=== PATIENT | female | born 1965 | race Caucasian/White ===

== ENCOUNTER → 2016-03-14 | Outpatient (CLI) | payer OTHER ==
--- NOTE | 2016-03-16 09:04 | MM ---
Reason for exam: screening (asymptomatic). Last mammogram was performed 1 year and 2 months ago. History: Family history of premenopausal breast cancer in mother at age 30 and breast cancer in maternal grandmother at age 60. Took hormonal contraceptives for 23 years 6 months beginning at age 18. Physical Findings: A clinical breast exam by your physician is recommended on an annual basis and results should be correlated with mammographic findings. MG 3D Screening Mammo W/Cad Bilateral CC and MLO view(s) were taken. Prior study comparison: January 05, 2015, left breast MG 3d work up w/cad LT. December 31, 2014, bilateral MG 3d screening mammo w/cad. Finding: There is an increased in size, 24 mm equal density (isodense), circumscribed round mass in the upper outer quadrant, middle position consistent with prior cyst from 01/05/15, 7 cm from the nipple. New finding since January 05, 2015 and December 31, 2014. ASSESSMENT: Incomplete: need additional imaging evaluation, BI-RAD 0 RECOMMENDATION: Ultrasound of the left breast. [facility] will attempt to contact patient to return for ultrasound.
== END | disposition home or self-care (01) ==
LOC: RADMAMWWP 10:29
PROVIDERS: ATTEND Surgery
DX: Z12.31 Encounter for screening mammogram for malignant neoplasm of breast (principal)
CPT/HCPCS: 77063; G0202

== ENCOUNTER → 2016-03-29 | Outpatient (CLI) | payer OTHER ==
--- NOTE | 2016-03-29 10:57 | USB ---
Reason for exam: additional evaluation requested from abnormal screening. History: Family history of premenopausal breast cancer in mother at age 30 and breast cancer in maternal grandmother at age 60. Took hormonal contraceptives for 23 years 6 months beginning at age 18. Physical Findings: Nurse did not find any significant physical abnormalities on exam. US Breast Workup LT Left breast ultrasound including all four quadrants, the retroareolar region and axilla demonstrates a 0.6 x 0.5 x 0.3cm oval, cystic lesion at 12 o'clock, a 0.3 x 0.2 x 0.2cm oval lesion too small to characterize at 12 o'clock and a 2.2 x 2.3 x 0.8cm oval, cystic lesion at 2 o'clock, increased in size from December 2014 but sill simple appearing. These results were verbally communicated with the patient and result sheet given to the patient on 03/29/16. ASSESSMENT: Benign, BI-RAD 2 RECOMMENDATION: Return to routine screening mammogram schedule for both breasts.
== END | disposition home or self-care (01) ==
LOC: RADUSWWP 09:47
PROVIDERS: ATTEND Surgery
DX: R92.8 Other abnormal and inconclusive findings on diagnostic imaging of breast (principal)

== ENCOUNTER → 2016-04-27 | Outpatient (CLI) | payer OTHER ==
--- NOTE | 2016-04-27 09:28 | CT ---
EXAMINATION TYPE: CT abdomen pelvis w con DATE OF EXAM: 04/27/2016 8:28 AM HISTORY: RLQ pain CT DLP: 1040.3mGycm Automated Exposure Control for Dose Reduction was Utilized. CONTRAST: CT scan of the abdomen and pelvis is performed with oral and with IV Contrast, patient injected with 100 mL of Omnipaque 300. COMPARISON: Prior CT abdomen and pelvis report February 03, 2009. FINDINGS: LUNG BASES: No significant abnormality is appreciated. LIVER/GB: There is a round or irregular area of low density posterior segment right hepatic dome robin uring 2.1 x 2.0 cm on axial image 18, Hounsfield units average 37 and thus solid lesion cannot be exc luded. There are 2 additional subcentimeter low dense lesions in the liver on axial image 20. Lesions are not described on prior report. PANCREAS: No significant abnormality is seen. SPLEEN: No significant abnormality is seen. ADRENALS: No significant abnormality is seen. KIDNEYS: No significant abnormality is seen. BOWEL: The oral contrast reaches level of rectum. There is no suspicious small or large bowel dilatat ion seen. Suspect normal contrast-filled appendix from the cecum. No surrounding inflammatory changes are present. UTERUS/ADNEXA: Uterus is anteverted in shape and within normal limits in size for premenopausal femal e. Both ovaries are present and not suspiciously enlarged near axial image 68. A few tiny nabothian c ysts are suspected in the cervix. LYMPH NODES: No greater than 1cm abdominal or pelvic lymph nodes are appreciated. OSSEOUS STRUCTURES: There is disc space narrowing with vacuum disc phenomenon L4-L5 level. There is f acet arthropathy lower lumbar spine. OTHER: No significant additional abnormality is seen. IMPRESSION: No significant acute finding is seen to account for patient's clinical symptoms. Nonspeci fic 2 cm right hepatic dome liver lesion, favor benign etiology such as focal fatty proliferation, co nsider multiphasic contrast-enhanced liver MRI to further evaluate and characterize if desired.
== END | disposition home or self-care (01) ==
LOC: RADCTMAIN 08:03
PROVIDERS: ATTEND Internal Medicine
DX: K76.9 Liver disease, unspecified (principal)
CPT/HCPCS: 74177; Q9967

== ENCOUNTER → 2016-05-14 | Outpatient (CLI) | payer OTHER ==
--- NOTE | 2016-05-14 12:53 | MR ---
EXAMINATION TYPE: MR liver wo/w con DATE OF EXAM: 05/14/2016 12:37 PM COMPARISON: CT scan of the abdomen and pelvis dated 04/27/2016. HISTORY: Malignant neoplasm of liver CONTRAST: Standard multiplanar, multisequence MRI departmental protocol utilizing 17 mL intravenous MultiHance gadolinium contrast. FINDINGS: There are 2 hepatic lesions. There is a 2.6 cm lesion in the posterior segment of the right lobe of the liver and a 1 cm lesion in the dome of the liver. Both of these lesions enhance centripe tally. The small lesion in the dome of the liver becomes isointense on delayed images. The larger les ion nearly completely fills in. In phase and out of phase imaging shows no significant fatty infiltration of the liver. The spleen and gallbladder are normal. The adrenal glands are unremarkable. Both kidneys demonstrate function and appear morphologically nor mal. IMPRESSION: FINDINGS MOST CONSISTENT WITH 2 SMALL HEMANGIOMAS WITHIN THE LIVER.
== END | disposition home or self-care (01) ==
LOC: RADMRIMAIN 11:34
PROVIDERS: ATTEND Internal Medicine
DX: C22.9 Malignant neoplasm of liver, not specified as primary or secondary (principal)
CPT/HCPCS: 74183; A9577

== ENCOUNTER → 2016-06-22 | Outpatient (CLI) | payer OTHER ==
--- NOTE | 2016-06-22 14:17 | XR ---
Lumbar spine HISTORY: Low back pain 5 views of the lumbosacral spine Correlation to prior exam 24 Jun 2010 Lumbar vertebral bodies show preserved height and alignment, there is no evident spondylolysis. Multi level spondylosis is present. Loss of disc height present at the intervertebral levels. IMPRESSION: Degenerative disc disease.
== END | disposition home or self-care (01) ==
LOC: RADXRMAIN 09:11
PROVIDERS: ATTEND Internal Medicine
DX: M51.36 Other intervertebral disc degeneration, lumbar region (principal)
CPT/HCPCS: 72110

== ENCOUNTER 2016-07-01 12:25 | Emergency (ER) | payer OTHER ==
[2016-07-01 13:07] VITALS: RESP 20; TEMP 98.4
--- NOTE | 2016-07-01 15:32 | ED ---
URI HPI - General Chief Complaint: Upper Respiratory Infection Stated Complaint: Congestion Time Seen by Provider: 07/01/16 15:19 Source: patient, RN notes reviewed Mode of arrival: ambulatory Limitations: no limitations - History of Present Illness Initial Comments: 51-year-old female presents emergency Department chief complaint cough congestion over the last 56 days. Patient states that she's also had some right -sided rib pain with this. She states it hurts when she twists or when she takes deep inspiration or coughs. She states she has a history of pleurisy. Patient states she has no shortness of breath at this time. Patient denies any left-sided or central/chest pain. Denies any palpitations no prior cardiac issues. Patient states that she saw her doctor yesterday and placed on azithromycin for upper respiratory infection. She states that she wanted x-ray though was not performed. Patient denies any nausea, vomiting, diaphoretic episodes, family history of heart disease. - Related Data Home Medications Medication Instructions Recorded Confirmed Cetirizine HCl [Zyrtec] 10 mg PO HS 11/04/14 07/01/16 Diclofenac Sodium [Voltaren] 75 mg PO BID 11/04/14 07/01/16 Sertraline [Zoloft] 200 mg PO HS 11/04/14 07/01/16 Cholecalciferol [Vitamin D3] 2,000 unit PO HS 01/01/15 07/01/16 Multivitamins, Thera [Multivitamin] 1 tab PO HS 01/01/15 07/01/16 Albuterol Nebulized [Ventolin 2.5 mg INHALATION RT-Q4H PRN 07/01/16 07/01/16 Nebulized] Magnesium Gluconate [Magonate] 500 mg PO HS 07/01/16 07/01/16 Metoclopramide [Reglan] 5 mg PO BID PRN 07/01/16 07/01/16 Mometasone/Formoterol [Dulera 100 2 puff INHALATION RT-BID 07/01/16 07/01/16 Mcg/5 Mcg Inhaler] Thyroid,Pork [Milton Thyroid] 120 mg PO BID 07/01/16 07/01/16 Vitamin A 8,000 unit PO HS 07/01/16 07/01/16 Vitamin K2 Otc 1 cap PO HS 07/01/16 07/01/16 Previous Rx's Medication Instructions Recorded methylPREDNISolone [Medrol Dose 4 mg PO DIRECTED #1 pack 07/01/16 Pack] traMADol HCl [Ultram] 50 mg PO Q6H PRN #20 tab 07/01/16 Allergies Allergy/AdvReac Type Severity Reaction Status Date / Time sulfamethoxazole Allergy Swelling Verified 07/01/16 15:49 [From Bactrim] of tongue and throat trimethoprim [From Bactrim] Allergy Swelling Verified 07/01/16 15:49 of tongue and throat migraine medication Allergy SWELLING Uncoded 01/01/15 11:40 OF TONGUE AND THROAT Review of Systems ROS Statement: Those systems with pertinent positive or pertinent negative responses have been documented in the HPI. ROS Other: All systems not noted in ROS Statement are negative. Past Medical History Past Medical History: Asthma, Osteoarthritis (OA) Additional Past Medical History / Comment(s): migraines, History of Any Multi-Drug Resistant Organisms: None Reported Past Surgical History: Section, Orthopedic Surgery Additional Past Surgical History / Comment(s): luis bunionectomy Past Anesthesia/Blood Transfusion Reactions: Motion Sickness Past Psychological History: Depression Smoking Status: Former smoker Past Alcohol Use History: None Reported Past Drug Use History: None Reported - Past Family History Father Family Medical History: Cancer Mother Family Medical History: Cancer, Deep Vein Thrombosis (DVT) General Exam Limitations: no limitations General appearance: alert, in no apparent distress Head exam: Present: atraumatic, normocephalic, normal inspection Eye exam: Present: normal appearance, PERRL, EOMI. Absent: scleral icterus, conjunctival injection, periorbital swelling ENT exam: Present: normal exam, normal oropharynx, mucous membranes moist, TM's normal bilaterally, normal external ear exam Neck exam: Present: normal inspection, full ROM. Absent: tenderness, meningismus, lymphadenopathy Respiratory exam: Present: normal lung sounds bilaterally, chest wall tenderness (Right lateral to anterior chest wall tenderness along the sternal). Absent: respiratory distress, wheezes, rales, rhonchi, stridor Cardiovascular Exam: Present: regular rate, normal rhythm, normal heart sounds. Absent: systolic murmur, diastolic murmur, rubs, gallop, clicks GI/Abdominal exam: Present: soft, normal bowel sounds. Absent: distended, tenderness, guarding, rebound, rigid Back exam: Absent: CVA tenderness (R), CVA tenderness (L) Course Vital Signs 07/01/16 13:04 Temperature 98.4 F Pulse Rate 74 Respiratory 20 Rate Blood Pressure 123/64 O2 Sat by Pulse 99 Oximetry Medical Decision Making - Medical Decision Making 51-year-old female presented emergency department for chest wall pain. Patient has acute costochondritis. Patient's EKG with normals. Patient has been sick and has reproducible pain. Patient will be discharged at this time return parameters were discussed. 07/01/16 16:04 EKG performed at 13:50 normal sinus rhythm with a rate of 72 OR interval 142, QS duration 76 QT/QTC 408/446 Disposition Clinical Impression: Costochondritis, Upper respiratory infection Disposition: HOME SELF-CARE Condition: Stable Instructions: Costochondritis (ED) Additional Instructions: Please return to the Emergency Department if symptoms worsen or any other concerns. Prescriptions: methylPREDNISolone [Medrol Dose Pack] 4 mg PO DIRECTED #1 pack traMADol HCl [Ultram] 50 mg PO Q6H PRN #20 tab PRN Reason: Pain Referrals: Terence Correa MD [Primary Care Provider] - 1-2 days Time of Disposition: 16:04
--- NOTE | 2016-07-01 16:02 | XR ---
EXAMINATION TYPE: XR chest 2V DATE OF EXAM: 07/01/2016 3:39 PM COMPARISON: 10/02/2015 HISTORY: 51-year-old female with cough and pain TECHNIQUE: Frontal and lateral views FINDINGS: The heart is normal size. Aorta and pulmonary vasculature within normal limits. Mild peribronchial cu ffing is noted centrally. Some strandy atelectasis in the lower lungs. Normal variant azygos fissure. No consolidation or pleural effusion. IMPRESSION: Some central peribronchial cuffing could represent bronchitis or chronic asthma. No focal infiltrate seen.
[2016-07-01 16:48] VITALS: BP 109/58; PULSE 69
== END 2016-07-01 16:48 | disposition home or self-care (01) ==
LOC: EC 12:25
DX: J06.9 Acute upper respiratory infection, unspecified (principal); M94.0 Chondrocostal junction syndrome [Tietze]; J45.909 Unspecified asthma, uncomplicated; M19.90 Unspecified osteoarthritis, unspecified site; F32.9 Major depressive disorder, single episode, unspecified; Z87.891 Personal history of nicotine dependence; Z79.1 Long term (current) use of non-steroidal anti-inflammatories (NSAID); Z79.51 Long term (current) use of inhaled steroids; Z79.899 Other long term (current) drug therapy; Z88.1 Allergy status to other antibiotic agents; Z88.8 Allergy status to other drugs, medicaments and biological substances
CPT/HCPCS: 71020; 93005; 99283

== ENCOUNTER → 2016-08-05 | Outpatient (CLI) | payer OTHER | END | disposition home or self-care (01) | LOC: LABPAT 12:31 | PROVIDERS: ATTEND Orthopaedic Surgery | DX: Z01.812 Encounter for preprocedural laboratory examination (principal) | CPT/HCPCS: 87070 ==

== ENCOUNTER → 2016-08-26 | Outpatient (CLI) | payer OTHER ==
[2016-08-26 10:31] LABS: Basophils % (A) 1 %; CH 28.8; CHCM 34.3; Eosinophils # (A) 0.1 k/uL (0-0.7); Eosinophils % (A) 1 %; HCT 38.7 % (34.0-46.0); HDW 2.51; Luc # (Auto) 0.08; Luc % (Auto) 2; Lymphocytes # (A) 1.5 k/uL (1.0-4.8); Lymphocytes % (A) 32 %; MCH 30.5 pg (25.0-35.0); MCHC 36.1 g/dL (31.0-37.0); MCV 84.4 fL (80.0-100.0); Mean Platelet Volume 6.7; Monocytes # (A) 0.2 k/uL (0-1.0); Monocytes % (A) 5 %; Neutrophils # (A) 2.8 k/uL (1.3-7.7); Neutrophils % (A) 59 %; RBC 4.58 m/uL (3.80-5.40); RDW 12.8 % (11.5-15.5); WBC 4.7 k/uL (3.8-10.6); WBC (Perox) 4.74
[2016-08-26 10:40] LABS: Partial Thromboplastin Time 26.7 sec (22.0-30.0); Prothrombin Time 9.8 sec (9.0-12.0)
[2016-08-26 10:43] LABS: Appearance,Urine Cloudy (Clear); Bacteria,Urine Occasional /hpf; Bilirubin,Urine Negative (Negative); Glucose,Urine (UA) Negative (Negative); Ketones,Urine Negative (Negative); Leukocyte Esterase,Urine Negative (Negative); Mucus,Urine Rare /hpf; Nitrite,Urine Negative (Negative); Particle Count 5143; Protein,Urine Negative (Negative); RBC,Urine 1 /hpf (0-5); Squamous Epithelial Cell,Urine 1 /hpf (0-4); UA Billing (MACRO vs. MICRO) MICRO; Urobilinogen,Urine <2.0 mg/dL (<2.0); WBC,Urine 1 /hpf (0-5)
[2016-08-26 10:52] LABS: Anion Gap 10 mmol/L; Blood Urea Nitrogen 14 mg/dL (7-17); Calcium 9.3 mg/dL (8.4-10.2); Carbon Dioxide 21 mmol/L (22-30); Chloride 109 mmol/L (98-107); Glucose 103 mg/dL (74-99); Non-African American GFR(MDRD) >60 (>60 ml/min/1.73 sqM); Potassium 4.5 mmol/L (3.5-5.1); Sodium 140 mmol/L (137-145)
== END | disposition home or self-care (01) ==
LOC: LABPAT 10:12
PROVIDERS: ATTEND Internal Medicine
DX: Z01.818 Encounter for other preprocedural examination (principal); Z96.659 Presence of unspecified artificial knee joint
CPT/HCPCS: 80048; 81001; 85025; 85610; 85730

== ENCOUNTER 2016-09-05 07:58 | Inpatient (IN) | payer OTHER ==
[2016-08-30 10:15] VITALS: BMI 32.1
--- NOTE | 2016-09-04 14:58 | HP ---
Miley Pennington is a 51 year old patient seen with symptomatic right knee osteoarthritis. After treatment options were discussed, she elected to proceed with right total knee arthroplasty. Consent was obtained. Medical clearance was provided by Dr. Correa. Past medical history is asthma, osteoarthritis, depression. Past surgical history is right knee arthroscopy. Daily medications: 1. Diclofenac. 2. Spironolactone. 3. Zoloft. 4. Zyrtec. ALLERGIES: BACTRIM. Social history: The patient denies tobacco use. Physical evaluation right knee: Range of motion: negative 2/3 to 120 degrees, tenderness along the medial joint line. Crepitans along the medial and patellofemoral compartments with range of motion. Pain with patellofemoral compression, ligaments stable. Hip rotation without pain. Distal neurovascular exam intact. Radiographs of the right knee revealed severe medial compartment osteoarthritis. IMPRESSION: Right knee osteoarthritis. PLAN: Right total knee arthroplasty. RONY
[~2016-09-05 07:58] MED LIST: ACETAMINOPHEN TAB 500 MG TAB PO ONE; DEXAMETHASONE SOD PHOSPHATE 10 MG/ML 1 ML VIAL IV ONE; HYDROmorphone 1 MG/ML 1 ML SYRINGE IVP PRN; LIDOCAINE 1% 20 ML VIAL (10MG/ML) FOR IV START INTRADERMA PRN; MELOXICAM 7.5 MG TAB PO ONE; MIDAZOLAM 2 MG/2 ML VIAL IV PRN; ONDANSETRON 4 MG/2 ML VIAL IVP ONE; SCOPOLAMINE 1.5MG/72HR PATCH TRANSDERM ONE; TRANEXAMIC ACID 1,000 MG in SODIUM CHLORIDE 0.9% 100 ML IVPB ONE; ceFAZolin 2 GM in SODIUM CHLORIDE 0.9% 100 ML IVPB ONE; fentaNYL (PF) 50 MCG/ML 2 ML AMP IVP PRN
[2016-09-05] MEDS: LACTATED RINGERS 1,000 ML IV SCH ×4 (09:16→23:16)
[2016-09-05 09:29] LABS: Glucose,Whole Blood 99 mg/dL (75-99)
[2016-09-05] MEDS ORDERED: MIDAZOLAM 2 MG/2 ML VIAL IVP ONE (09:34)
[2016-09-05] MEDS ORDERED: ROPIVACAINE 1,100 MG, SODIUM CHLORIDE 0.9% 330 ML MISCELLANE PRN ×2 (10:20)
[2016-09-05] MEDS ORDERED: fentaNYL (PF) 50 MCG/ML 2 ML AMP ONE (10:22)
[2016-09-05] MEDS ORDERED: MIDAZOLAM 2 MG/2 ML VIAL ONE (10:22)
[2016-09-05] MEDS ORDERED: PROPOFOL 10 MG/ML 20 ML VIAL IV ONE (10:22)
[2016-09-05] MEDS ORDERED: SODIUM CHLORIDE 0.9% 100 ML BAG ONE (10:22)
[2016-09-05] MEDS ORDERED: PHENYLEPHRINE-0.9% NACL SYG 1 MG/10 ML SYRINGE ONE (10:22)
[2016-09-05] MEDS ORDERED: TRANEXAMIC ACID 1,000 MG/10 ML VIAL ONE (10:22)
[2016-09-05] MEDS ORDERED: ONDANSETRON 4 MG/2 ML VIAL ONE (10:22)
[2016-09-05] MEDS ORDERED: LACTATED RINGERS 1,000 ML IV ONE (10:50)
[2016-09-05] MEDS: ROPIVACAINE 246.25 MG, EPINEPHrine 0.5 MG, KETOROLAC 30 MG, cloNIDine HCL/PF 80 MCG, WA... MISCELLANE ONE ×10 (11:02→11:44)
[2016-09-05] MEDS ORDERED: ONDANSETRON 4 MG/2 ML VIAL IVP PRN (12:37)
[2016-09-05] MEDS ORDERED: NALOXONE 0.4 MG/ML 1 ML VIAL IV PRN (12:37)
[2016-09-05] MEDS ORDERED: hydrOXYzine PAMOATE 25 MG CAP PO PRN (12:37)
[2016-09-05] MEDS ORDERED: HYDROcodone/APAP 7.5-325MG 1 EACH TAB PO PRN (12:37)
[2016-09-05] MEDS ORDERED: HYDROmorphone 1 MG/ML 1 ML SYRINGE IVP PRN ×3 (12:37)
--- NOTE | 2016-09-05 12:37 | P.OP ---
Date of Procedure: 09/05/16 Preoperative Diagnosis: Right knee osteoarthritis Postoperative Diagnosis: Right knee osteoarthritis Procedure(s) Performed: Right total knee arthroplasty Implants: 1. Larissa persona size 7 narrow cruciate retaining cemented femoral component 2. Larissa persona size D cemented tibial component 3. Larissa persona 10 mm medial congruent polyethylene tibial insert 4. Larissa persona 35 mm all polyethylene cemented patella Anesthesia: regional (Adductor canal block), local, spinal Surgeon: Tyrese Quinn Senior Professional Services Consultant #1: Ji Hoyos Estimated Blood Loss (ml): 50 Pathology: none sent Condition: stable Disposition: PACU Indications for Procedure: 51-year-old patient seen with progressive symptomatic right knee osteoarthritis. After treatment options were discussed, she elected to proceed with total knee arthroplasty. Operative Findings: See description of procedure Description of Procedure: Patient was taken to the operative suite after having undergone an adductor canal block by department of anesthesia. Patient underwent a spinal anesthetic by the department of anesthesia. Patient was given preoperative IV intake antibiotics and TXA. A well-padded tourniquet was placed about the right lower extremity. The lower extremity was then prepped and draped in the normal sterile orthopedic fashion. A standard anterior incision was made sharply through skin. Dissection was taken down through the subcutaneous soft tissues down to the extensor mechanism. A medial arthrotomy was performed, patella was everted and knee was flexed. There was advanced osteoarthritis noted. A proximal tibial cutting guide was positioned. Proximal tibial cut was made. A distal intramedullary femoral cutting guide was positioned, distal femoral cut made. We placed the appropriate sizing guide and selected the appropriate size. A distal 4-in-1 femoral cutting block was positioned, distal femoral cuts were made. We now placed a trial femoral component into position, along with an appropriate size tibial tray and insert. We now took the knee through range of motion and had full extension good flexion and good overall soft tissue balance noted. The patella was everted and a flush cut made with patellar quad tendon. We templated the patella, appropriate drill holes were made. An appropriate trial patella was positioned, knee was taken through full range of motion with the patella tracking very nicely. The trial patella was removed. Drill holes were made through the femoral component. All trial components were removed after marking off the appropriate rotation of the tibia. Retractors were now positioned along the proximal tibia. An appropriate keel punch was made with the appropriate size tibial guide. The tourniquet was insufflated to 350. At this point appropriate size implants were chosen and opened. The joint was irrigated copiously with pulse lavage mechanical irrigation. The deep soft tissues were infiltrated local analgesic. We mixed antibiotic methylmethacrylate. Once the methyl methacrylate was ready, the tibial component was cemented into place removing any excess methylmethacrylate. The femoral component was cemented into place removing the removing any excess methylmethacrylate. We then inserted the appropriate size polyethylene tibial insert. We made sure that it was locked into position. We took the knee into full extension, and then back in a flexion making sure we had removed any excess methylmethacrylate. The patellar component was then cemented down and secured with clamp. Excess methylmethacrylate removed. We kept the knee in full extension, patellar clamp in position until methylmethacrylate had hardened. Once it had hardened the patellar clamp was removed. The knee was taken through full range of motion. The patella tracked nicely. There was good soft tissue balancing. The tourniquet was now released. Additional hemostasis was achieved via electrocautery. A second gram of TXA was given. The extensor mechanism was repaired with Vicryl. We checked the repair with range of motion and it was stable. The subcutaneous soft tissues were repaired with Vicryl in layers. The skin was approximated with pernio/Dermabond. Sterile dressings were applied followed by loose web roll and Jem bandage. The patient was transferred to a bed, and taken to recovery in stable and satisfactory condition. David TRINIDAD assisted with the procedure.
--- NOTE | 2016-09-05 13:16 | XR ---
EXAMINATION TYPE: XR knee limited RT , 2 VIEWS DATE OF EXAM ORDERED: 09/05/2016 HISTORY: Evaluation for Postop abnormality and alignment. COMPARISON: Preoperative study dated 12/29/2009. FINDINGS: The right knee arthroplasty has been performed. Prosthetic elements appear in good positio n. There is subcutaneous and intra-articular air. IMPRESSION: STATUS POST RIGHT KNEE ARTHROPLASTY.
[2016-09-05] MEDS: traMADol 50 MG TAB PO SCH ×3 (14:01→21:07)
[2016-09-05 16:11] VITALS: RESP 16
[2016-09-05] MEDS: ceFAZolin 2 GM in SODIUM CHLORIDE 0.9% 100 ML IVPB SCH ×2 (16:56→23:16)
[2016-09-05] MEDS ORDERED: ALBUTEROL NEBULIZED 2.5 MG/3 ML INHALATION PRN (19:05)
--- NOTE | 2016-09-05 19:17 | P.ONQ ---
Anesthesiology Proc Note - PNB - Peripheral Nerve Block Performed Right Adductor Canal Infusion Indication: Acute Post-Operative Pain, Dx/Pain Location (Right Knee), Requested by physician Specifically requested for management of pain by DrMagan: Tyrese Quinn Sedation Type: Sedate with meaningful contact maintained Preparation: Sterile Dressing Position: Supine Catheter: Indwelling Needle Types: Other (see comment) (Pajunk ) Needle Size: 100mm (4") Needle Gauge: 18 Technique: Ultrasound Injectate: 0.5% Ropivacaine (see comment for volume) (30cc) Blood Aspirated: No Pain Paresthesia on Injection Noted: No Resistance on Injection: Normal Events: Uneventful and Well Tolerated
[2016-09-05] MEDS: SENNOSIDES-DOCUSATE SODIUM 1 EACH TAB PO SCH (20:19)
[2016-09-05] MEDS: ENOXAPARIN 30 MG/0.3 ML SYRINGE SQ SCH (20:20)
[2016-09-05] MEDS: SERTRALINE 100 MG TAB PO SCH (20:20)
[2016-09-06] MEDS: HYDROcodone/APAP 7.5-325MG 1 EACH TAB PO PRN ×4 (01:06→17:20)
--- NOTE | 2016-09-06 06:42 | CONS ---
DATE OF SERVICE: 09/05/2016 This is a 51-year-old white female who has long-standing history of advanced degenerative arthritis of the right knee and patient was being followed by Dr. Quinn and patient was recommended to have right total knee arthroplasty and accordingly the patient had a right total knee arthroplasty today that is 2016 and I have been asked to see the patient for postoperative medical management. Her medical history reveals that she has history of gastroesophageal reflux disease and degenerative arthritis of multiple joints especially the knee and also has a history of mental depression. She denies any diabetes mellitus or COPD or coronary artery disease and has no history of diabetes mellitus. Her current medications include Reglan, Voltaren, Nexium, Zoloft. She has no known drug allergies. She does not smoke and she does not drink alcohol. Family history reveals that patient's mother has history of diabetes and hypertensive cardiovascular disease, degenerative arthritis of multiple joints and also has a history of lymphoma several years ago and the patient's father has history of coronary artery disease, chronic lymphocytic leukemia, COPD and arthritis. REVIEW OF THE SYSTEMS: The patient denies any headache. Appetite has been good. Bowels are regular. She has no chest pain. She has no cough. She has no abdominal pain. She has no polyuria or dysuria. She has no neurological symptoms. Physical examination reveals a 51-year-old white female, well nourished and well developed. She is alert and oriented. She is in no acute distress. There is no jaundice. There is no generalized lymphadenopathy. There are no petechiae or bruises. Pulse 80 per minute regular. Blood pressure 120/72. EXAMINATION OF THE ENT: Negative. Neck is supple. There is no jugular venous distention. There is no goiter. There is no carotid bruit. Heart is in sinus rhythm. Lungs are clear to auscultation and percussion. ABDOMEN: Soft and nontender. There is no mass palpable. Examination of the lower extremities reveals that she is status post right total knee arthroplasty. Neurologic examination does not reveal localizing signs. IMPRESSION: 1. Advanced osteoarthritis right knee, status post right total knee arthroplasty. 2. History of gastroesophageal reflux disease. 3. History of mental depression. RECOMMENDATIONS: Patient will be placed back on her previous medications. Her vital signs are stable. There is no acute cardiorespiratory problems. Patient will be started on DVT prophylaxis as per orthopedic protocol. Thank you for asking me to see this patient in consultation. We will follow the patient with you for her medical problems. RONY
[2016-09-06] MEDS: ENOXAPARIN 30 MG/0.3 ML SYRINGE SQ SCH ×2 (07:14→19:22)
[2016-09-06] MEDS: FAMOTIDINE 20 MG TAB PO SCH (07:14)
[2016-09-06] MEDS: LACTATED RINGERS 1,000 ML IV SCH ×4 (07:15→23:48)
[2016-09-06 08:05] LABS: Basophils % (A) 0 %; CH 29.1; CHCM 33.2; Eosinophils % (A) 0 %; HCT 33.2 % (34.0-46.0); HGB 11.1 gm/dL (11.4-16.0); Luc # (Auto) 0.07; Luc % (Auto) 1; Lymphocytes # (A) 1.6 k/uL (1.0-4.8); Lymphocytes % (A) 17 %; MCH 29.3 pg (25.0-35.0); MCHC 33.4 g/dL (31.0-37.0); MCV 87.8 fL (80.0-100.0); Mean Platelet Volume 7.1; Monocytes # (A) 0.5 k/uL (0-1.0); Monocytes % (A) 5 %; Neutrophils # (A) 7.3 k/uL (1.3-7.7); Neutrophils % (A) 77 %; RBC 3.78 m/uL (3.80-5.40); RDW 13.3 % (11.5-15.5); WBC 9.5 k/uL (3.8-10.6); WBC (Perox) 9.55
[2016-09-06] MEDS ORDERED: MELOXICAM 7.5 MG TAB PO SCH (09:00)
--- NOTE | 2016-09-06 10:09 | P.PN ---
Progress Note - Text . Postoperative day # 1 status post total knee arthroplasty, under spinal anesthesia, and adductor canal catheter placed for postoperative analgesia, currently at ropivacaine 0.2% 8 mL per hour and continuous infusion, catheter site local. There is no erythema, and there is no tenderness, visual analogue scale is 3/10, patient using oral pain medication for breakthrough pain. Assessment and plan= Acute postoperative pain, adductor canal catheter for pain control, pain is well controlled we'll continue the same management.
[2016-09-06] MEDS: traMADol 50 MG TAB PO SCH ×4 (11:17→22:14)
--- NOTE | 2016-09-06 12:17 | P.PN ---
Subjective Principal diagnosis: Status post right total knee arthroplasty Patient seen today resting in her hospital bed, she appears comfortable. Her pain is controlled this time. There was a little bit lightheadedness when ambulating. Urinary catheters been discontinued. She denies any fevers or chills, shortness of breath or chest pain. Objective - Vital Signs Vital signs: Vital Signs Temp 97.6 F 09/06/16 07:00 Pulse 77 09/06/16 08:00 Resp 16 09/06/16 08:00 BP 111/69 09/06/16 07:00 Pulse Ox 92 L 09/06/16 07:00 Intake & Output 09/05/16 09/06/16 09/06/16 18:59 06:59 18:59 Intake Total 2580 500 240 Output Total 1000 2200 700 Balance 1580 -1700 -460 Weight 86.183 kg 86.183 kg Intake: IV 2100 500 Lactated Ringers 1,000 ml 400 @ 100 mls/hr IV .Q10H MARY Rx#:[id number] ceFAZolin 2 gm In Sodium 100 Chloride 0.9% 100 ml @ 100 mls/hr IVPB Q8HR MARY Rx#:[id number] Oral 480 240 Output: Urine 950 2200 700 Uretheral ([place]) 2200 700 Estimated Blood Loss 50 Other: Voiding Method Indwelling Catheter Indwelling Catheter Toilet - Exam Right lower extremity: Incision is clean, dry and intact. Calf is soft, no tenderness with palpation. Plantar flexion, dorsiflexion, EHL, FHL are intact. Sensory exam to light touch throughout that extremities intact, dorsal pedis pulses 2+. - Labs CBC & Chem 7: 09/06/16 07:27 Labs: Abnormal Lab Results - Last 24 Hours (Table) 09/06/16 Range/Units 07:27 RBC 3.78 L (3.80-5.40) m/uL Hgb 11.1 L (11.4-16.0) gm/dL Hct 33.2 L (34.0-46.0) % Assessment and Plan Plan: Assessment: 1. Postop day 1 status post right total knee arthroplasty Plan: 1. Pain control, continue same current medications 2. GI and DVT prophylaxis, continue current medication 3. Ice and elevate/daily dressing changes 4. Continue therapy and CPM 5. Medical recommendations 6. Discharge planning: Patient will be discharged home today, likely tomorrow Time with Patient: Less than 30
--- NOTE | 2016-09-06 12:19 | P.DS ---
Providers Date of admission: 09/05/16 07:58 Expected date of discharge: 09/07/16 Attending physician: Tyrese Quinn Consults: 09/05/16 12:37 Consult Physician Routine Consulting Provider: Terence Correa Reason/Comments: Medical management Do you want consulting provider notified?: Yes Primary care physician: Terence Correa [facility] Course: Date of admission: 09/05/2016 Date of discharge: 09/07/2016 Admission diagnosis: Status post right total knee arthroplasty Discharge diagnosis: Same Attending physician: Dr. Quinn Surgical procedures: Right total knee arthroplasty Brief history: Patient is a 51-year-old female with a history of progressive primary right knee osteoarthritis. At this point patient has failed conservative treatment measures and has opted to proceed with a elective right total knee arthroplasty. Hospital course: Details of patient's surgery can be found in operative report. Patient tolerated the procedure well and was subsequently transported to orthopedic floor. Patient's orthopeidc and medical care was provided daily. Patient had daily laboratory tests performed for evaluation of overall blood counts. Patient had daily physical therapy to include strengthening range of motion as well as education with walker ambulation. Patient had daily CPM usage as part of their physical therapy program. Patient was treated with Lovenox for their postoperative DVT prophylaxis during their inpatient stay. Patient was noted to have a relatively uneventful postoperative course. Patient reported satisfactory pain control with oral pain medications by postoperative day 0. Patient showed satisfactory progress with physical therapy. Patient moved steadily through the program and had no difficulty meeting the goals by postoperative day 2. Given patient's otherwise satisfactory course and having met physical therapy goals, plan is to discharge patient home on postoperative day 2. Discharge condition/disposition: Patient will be discharged home in stable condition. Discharge medications: Instructions are given on resumption of patient's normal daily medications per primary care recommendation, in addition patient will be prescribed [place] 7.5 mg/325 mg, tramadol 50 mg, Pepcid 20 mg, Colace 100 mg, aspirin 325 mg. Discharge instructions: 1. Wound care and infection precautions, [keep incision dry and covered while showering], no lotions, creams, moisturizers. No soaking, tubs, pools, hottubs. Do not scrub over the incision. 2. Weight-bear [as tolerated] with walker / cane until follow-up. 3. Ice and elevate when necessary. Do not exceed 20 minutes per hour with ice pack. 4. Utilize compression sleeve until seen at first follow up appointment. 5. Visiting nursing care. 6. Home physical therapy [including home CPM]. 7. Pain meds and anticoagulants per prescription. 8. Pain medication has potential to cause constipation. Increase oral fluid and fiber intake. Contact primary care provider if you have not had a bowel movement within 48 hours after discharge 9. No anti-inflammatory medication until discussed at first post operative visit, this including Motrin, Aleve, Mobic, Diclofenac. 10. Follow up in office at 2 weeks postop with David Hoyos PA-C 11. Follow up with your primary care doctor 7-10 days after discharge. 12. Contact [facility] with any questions, . Procedures: Right total knee arthroplasty Patient Condition at Discharge: Good Plan - Discharge Summary New Discharge Prescriptions: New Aspirin 325 mg PO BID #60 tab Docusate [Colace] 100 mg PO DAILY #30 capsule Famotidine [Pepcid] 20 mg PO DAILY #30 tablet HYDROcodone/APAP 7.5-325MG [[place] 7.5] 1 - 2 each PO Q6HR PRN #60 tab PRN Reason: Pain traMADol HCl [Ultram] 50 mg PO Q6H PRN #40 tab PRN Reason: Pain No Action Diclofenac Sodium [Voltaren] 75 mg PO BID Cetirizine HCl [Zyrtec] 10 mg PO HS Sertraline [Zoloft] 200 mg PO HS Cholecalciferol [Vitamin D3] 2,000 unit PO HS Multivitamins, Thera [Multivitamin] 1 tab PO HS Vitamin K2 Otc 1 cap PO HS Vitamin A 8,000 unit PO HS Albuterol Nebulized [Ventolin Nebulized] 2.5 mg INHALATION RT-Q4H PRN PRN Reason: Shortness Of Breath Metoclopramide [Reglan] 5 mg PO BID PRN PRN Reason: Nausea Magnesium Gluconate [Magonate] 500 mg PO HS Thyroid,Pork [[place] Thyroid] 60 mg PO BID Discharge Medication List Cetirizine HCl [Zyrtec] 10 mg PO HS 11/04/14 [History] Diclofenac Sodium [Voltaren] 75 mg PO BID 11/04/14 [History] Sertraline [Zoloft] 200 mg PO HS 11/04/14 [History] Cholecalciferol [Vitamin D3] 2,000 unit PO HS 01/01/15 [History] Multivitamins, Thera [Multivitamin] 1 tab PO HS 01/01/15 [History] Albuterol Nebulized [Ventolin Nebulized] 2.5 mg INHALATION RT-Q4H PRN 07/01/16 [ History] Magnesium Gluconate [Magonate] 500 mg PO HS 07/01/16 [History] Metoclopramide [Reglan] 5 mg PO BID PRN 07/01/16 [History] Vitamin A 8,000 unit PO HS 07/01/16 [History] Vitamin K2 Otc 1 cap PO HS 07/01/16 [History] Thyroid,Pork [[place] Thyroid] 60 mg PO BID 08/30/16 [History] Aspirin 325 mg PO BID #60 tab 09/07/16 [Rx] Docusate [Colace] 100 mg PO DAILY #30 capsule 09/07/16 [Rx] Famotidine [Pepcid] 20 mg PO DAILY #30 tablet 09/07/16 [Rx] HYDROcodone/APAP 7.5-325MG [[place] 7.5] 1 - 2 each PO Q6HR PRN #60 tab 09/07/16 [ Rx] traMADol HCl [Ultram] 50 mg PO Q6H PRN #40 tab 09/07/16 [Rx] Follow up Appointment(s)/Referral(s): Ji Hoyos PAC [PHYSICIAN WHEEL TRUER] - 2 Weeks Activity/Diet/Wound Care/Special Instructions: [facility]: [phone] Orthopedic Discharge Instructions: 1. Wound care and infection precautions, keep incision dry and covered while showering, no lotions, creams, moisturizers. No soaking, pools, hot tubs. Do not scrub over incision. 2. Weight-bear as tolerated with walker / cane until follow-up. 3. Ice and elevate when necessary. Do not exceed 20 minutes per hour with ice pack. 4. Utilize compression sleeve until seen at first follow up appointment. 5. Visiting nursing care. 6. Home physical therapy including home CPM. 7. Pain meds and anticoagulants per prescription. 8. Pain medication has potential to cause constipation. Increase oral fluid and fiber intake. Contact primary care provider if you have not had a bowel movement within 48 hours after discharge. 9. No anti-inflammatory medication until discussed at first post operative visit, this including Motrin, Aleve, Mobic, Diclofenac. 10. Follow up in office at 2 weeks postop with David Hoyos PA-C 11. Follow up with your primary care doctor 7-10 days after discharge. 12. Contact [facility] with any questions, . Discharge Disposition: HOME WITH HOME HEALTH SERVICES
[2016-09-06] MEDS ORDERED: METOCLOPRAMIDE 5 MG TAB PO PRN (12:50)
[2016-09-06] MEDS: THYROID, PORK 30 MG TAB PO SCH ×2 (13:45→19:15)
[2016-09-06] MEDS: SERTRALINE 100 MG TAB PO SCH (19:15)
[2016-09-06] MEDS: ETODOLAC 400 MG TAB PO SCH (19:16)
[2016-09-06] MEDS: SENNOSIDES-DOCUSATE SODIUM 1 EACH TAB PO SCH (19:19)
--- NOTE | 2016-09-06 19:32 | PN ---
DATE OF SERVICE: 09/06/16 This is a 51 -year-old white female who had a right total knee arthroplasty yesterday and the patient was seen by me for postoperative medical management. The patient has been doing fairly well. Vital signs were stable. She denied any chest pain or cough. Apparently she had a dizzy spell while she was getting physical therapy and she is feeling alright now and her vital signs are stable. Blood pressure is 132/72. Her hemoglobin is 11.1. Heart is in sinus rhythm. Lungs are clear. There is no acute cardiorespiratory problems. The patients blood pressure is being monitored and she will be placed back on her previous home medications. We will continue physical therapy and she could be discharged home when it is okay with Dr. Quinn, possibly tomorrow. RONY
[2016-09-06] MEDS ORDERED: LORATADINE 10 MG TAB PO SCH (21:00)
[2016-09-06] MEDS ORDERED: MULTIVITAMINS, THERA 1 EACH TAB PO SCH (21:00)
[2016-09-06] MEDS ORDERED: MAGNESIUM OXIDE 400 MG TAB PO SCH (21:00)
[2016-09-06] MEDS ORDERED: VITAMIN A 10,000 UNIT CAPSULE PO SCH (21:00)
[2016-09-06] MEDS ORDERED: CHOLECALCIFEROL 1,000 UNIT TAB PO SCH (21:00)
[2016-09-07] MEDS: HYDROcodone/APAP 7.5-325MG 1 EACH TAB PO PRN (05:19)
[2016-09-07 08:41] VITALS: BP 107/55; PULSE 76; TEMP 97.9
--- NOTE | 2016-09-07 09:08 | P.PN ---
Subjective Principal diagnosis: Status post right total knee arthroplasty Patient seen today resting in her hospital bed, she appears comfortable. Her pain is controlled this time. Lightheadedness has improved significantly today. She denies any fevers or chills, shortness of breath or chest pain. Objective - Vital Signs Vital signs: Vital Signs Temp 97.9 F 09/07/16 07:40 Pulse 76 09/07/16 07:40 Resp 16 09/07/16 07:40 BP 107/55 09/07/16 07:40 Pulse Ox 93 L 09/07/16 07:40 Intake & Output 09/06/16 09/07/16 09/07/16 18:59 06:59 18:59 Intake Total 720 220 Output Total 700 Balance 20 220 Weight 86.183 kg Intake: Oral 720 220 Output: Urine 700 Uretheral ([place]) 700 Other: Voiding Method Toilet Toilet # Voids 2 1 - Exam Right lower extremity: Incision is clean, dry and intact. Calf is soft, no tenderness with palpation. Plantar flexion, dorsiflexion, EHL, FHL are intact. Sensory exam to light touch throughout that extremities intact, dorsal pedis pulses 2+. - Labs CBC & Chem 7: 09/06/16 07:27 Assessment and Plan Plan: Assessment: 1. Postop day #2 status post right total knee arthroplasty Plan: 1. Pain control, continue same current medications 2. GI and DVT prophylaxis, discharged home on aspirin 325 mg twice a day 3. Ice and elevate/daily dressing changes 4. Continue therapy and CPM 5. Medical recommendations 6. Discharge planning: We'll discharge home today Time with Patient: Less than 30
--- NOTE | 2016-09-07 10:53 | P.PN ---
Progress Note - Text 0708 anesthesia POD 2. Patient is status post right TKR under spinal anesthesia with a right adductor canal catheter placed for postoperative pain relief. Patient is seen ambulating in the hallway with assistance. Ropivacaine 0.2% is running at 12 mL/h and the patient reports a VAS of 4. Catheter site is intact clean and dry. We'll continue with the same management.
[2016-09-07] MEDS: ENOXAPARIN 30 MG/0.3 ML SYRINGE SQ SCH (11:15)
[2016-09-07] MEDS: THYROID, PORK 30 MG TAB PO SCH (11:17)
[2016-09-07] MEDS: FAMOTIDINE 20 MG TAB PO SCH (11:17)
[2016-09-07] MEDS: ETODOLAC 400 MG TAB PO SCH (11:22)
[2016-09-07] MEDS: traMADol 50 MG TAB PO SCH ×2 (11:23→14:29)
--- NOTE | 2016-09-08 09:16 | PN ---
DATE OF SERVICE: 09/07/2016 This is a 51-year-old white female who had a right total knee arthroplasty by Dr. Quinn and patient was seen by me for postoperative medical management. Patient tolerated the surgery well and postoperatively she had no complications and her vital signs are stable. Her hemoglobin is stable and patient is going to be discharged by Dr. Quinn today and she denies any chest pain or shortness of breath and there is no acute cardiorespiratory problems. Detailed discharge instructions from medical standpoint was given and she was continued on her previous home medications. Will see her in my office for medical followup in about 2 weeks. She will also be followed by Dr. Quinn for continued postop care and will also get home health care for physical therapy. RONY
== END 2016-09-07 15:08 | disposition home health service (06) | DRG 470 ==
LOC: 2ORMAIN 07:58 → 3SUR 12:51
PROVIDERS: ADMIT Orthopaedic Surgery; ATTEND Orthopaedic Surgery
PROC: 0SRC0J9 Replacement of Right Knee Joint with Synthetic Substitute, Cemented, Open Approach (ICD-10-PCS; principal; 2016-09-05 10:10)
DX: M17.11 Unilateral primary osteoarthritis, right knee (principal); F32.9 Major depressive disorder, single episode, unspecified; J45.909 Unspecified asthma, uncomplicated; M23.8X1 Other internal derangements of right knee; R42 Dizziness and giddiness; G43.909 Migraine, unspecified, not intractable, without status migrainosus; E07.9 Disorder of thyroid, unspecified; G89.18 Other acute postprocedural pain; K21.9 Gastro-esophageal reflux disease without esophagitis; Z83.3 Family history of diabetes mellitus; Z82.49 Family history of ischemic heart disease and other diseases of the circulatory system; Z80.6 Family history of leukemia; Z82.5 Family history of asthma and other chronic lower respiratory diseases; Z82.61 Family history of arthritis; Z80.7 Family history of other malignant neoplasms of lymphoid, hematopoietic and related tissues; Z79.1 Long term (current) use of non-steroidal anti-inflammatories (NSAID); Z79.899 Other long term (current) drug therapy; Z88.2 Allergy status to sulfonamides; Z88.8 Allergy status to other drugs, medicaments and biological substances; Z87.442 Personal history of urinary calculi
CPT/HCPCS: 81025; 85025; 88300

== ENCOUNTER → 2017-03-07 | Outpatient (CLI) | payer OTHER ==
[2017-03-07 11:12] LABS: ALT 26 U/L (9-52); AST 17 U/L (14-36); Albumin 4.3 g/dL (3.5-5.0); Alkaline Phosphatase 76 U/L (38-126); Anion Gap 9 mmol/L; Blood Urea Nitrogen 14 mg/dL (7-17); Calcium 9.5 mg/dL (8.4-10.2); Carbon Dioxide 27 mmol/L (22-30); Chloride 104 mmol/L (98-107); Cholesterol 193 mg/dL (<200); Glucose 99 mg/dL (74-99); HDL Cholesterol 45 mg/dL (40-60); LDL Cholesterol,Calculated 121 mg/dL (0-99); Potassium 4.5 mmol/L (3.5-5.1); Sodium 140 mmol/L (137-145); Total Bilirubin 0.8 mg/dL (0.2-1.3); Triglycerides 133 mg/dL (<150)
[2017-03-07 11:16] LABS: HCT 38.7 % (34.0-46.0); HGB 12.8 gm/dL (11.4-16.0); MCH 28.2 pg (25.0-35.0); MCV 85.2 fL (80.0-100.0); Platelet Count 345 k/uL (150-450); RBC 4.54 m/uL (3.80-5.40); RDW 13.5 % (11.5-15.5); WBC 5.1 k/uL (3.8-10.6)
[2017-03-07 11:28] LABS: T4, Free (Free Thyroxine) 0.95 ng/dL (0.78-2.19)
--- NOTE | 2017-03-07 12:23 | XR ---
EXAMINATION TYPE: XR hand complete RT DATE OF EXAM: 03/07/2017 COMPARISON: NONE HISTORY: Pain TECHNIQUE: Three views are submitted. FINDINGS: The osseous structures are intact. There is arthropathy of the MCP joints. And there is no acute frac ture or dislocation. IMPRESSION: 1. Mild arthropathy
--- NOTE | 2017-03-07 12:24 | XR ---
EXAMINATION TYPE: XR wrist complete RT DATE OF EXAM: 03/07/2017 COMPARISON: NONE HISTORY: Pain TECHNIQUE: Four views submitted. FINDINGS: The osseous structures are intact. The joint spaces are preserved and there is no acute fracture or dislocation. IMPRESSION: 1. No definite acute fracture or dislocation if symptoms persist, follow-up study in 7 to 10 days wo uld be suggested
== END | disposition home or self-care (01) ==
LOC: LABWHC1 10:17
PROVIDERS: ATTEND Internal Medicine
DX: M12.841 Other specific arthropathies, not elsewhere classified, right hand (principal); G56.01 Carpal tunnel syndrome, right upper limb; Z00.00 Encounter for general adult medical examination without abnormal findings; K21.0 Gastro-esophageal reflux disease with esophagitis; E03.9 Hypothyroidism, unspecified; E78.2 Mixed hyperlipidemia
CPT/HCPCS: 36415; 80053; 80061; 82272; 84439; 84443; 85027

== ENCOUNTER → 2017-04-13 | Outpatient (CLI) | payer OTHER ==
--- NOTE | 2017-04-14 06:53 | MM ---
Reason for exam: additional evaluation requested from prior study. Last mammogram was performed 1 year and 1 month ago. History: Family history of premenopausal breast cancer in mother at age 30 and breast cancer in maternal grandmother at age 60. Took hormonal contraceptives for 23 years 6 months beginning at age 18. Physical Findings: Nurse Summary: 1cm nodule in the left breast at 1 o'clock (nurse theresa). MG 3D Diag Mammo W/Cad MARCELO Bilateral CC and MLO view(s) were taken. Prior study comparison: March 14, 2016, bilateral MG 3d screening mammo w/cad. January 05, 2015, left breast MG 3d work up w/cad LT. The breast tissue is heterogeneously dense. This may lower the sensitivity of mammography. Finding: There is a 30 mm circumscribed round mass in the middle posterior position of the left breast. New finding and slightly increase in size since March 14, 2016 and January 05, 2015. These results were verbally communicated with the patient and result sheet given to the patient on 04/13/17. ASSESSMENT: Incomplete: need additional imaging evaluation, BI-RAD 0 RECOMMENDATION: Ultrasound of the left breast.
--- NOTE | 2017-04-14 06:55 | USB ---
Reason for exam: additional evaluation requested from abnormal screening. History: Family history of premenopausal breast cancer in mother at age 30 and breast cancer in maternal grandmother at age 60. Took hormonal contraceptives for 23 years 6 months beginning at age 18. US Breast LT Left breast ultrasound includes all four quadrants, the retroareolar region and axilla. Finding demonstrates a 0.3 x 0.2 x 0.3cm lesion too small to characterize at 12 o'clock, a 0.5 x 0.3 x 0.5cm lesion too small to characterize at 12 o'clock, a 0.6 x 0.7 x 0.5cm cystic lesion at 1 o'clock and a 2.6 x 1.8 x 0.7cm cystic lesion at 2 o'clock. These results were verbally communicated with the patient and result sheet given to the patient on 04/13/17. ASSESSMENT: Benign, BI-RAD 2 RECOMMENDATION: Routine screening mammogram of both breasts in 1 year.
== END | disposition home or self-care (01) ==
LOC: RADMAMWWP 14:33
PROVIDERS: ATTEND Surgery
DX: N60.19 Diffuse cystic mastopathy of unspecified breast (principal); Z80.3 Family history of malignant neoplasm of breast
CPT/HCPCS: 77066; 76641; G0279

== ENCOUNTER → 2018-05-07 | Outpatient (CLI) | payer OTHER ==
--- NOTE | 2018-05-07 12:10 | MM ---
Reason for exam: screening (asymptomatic). Last mammogram was performed 1 year and 1 month ago. History: Family history of premenopausal breast cancer in mother at age 30 and breast cancer in maternal grandmother at age 60. Took hormonal contraceptives for 23 years 6 months beginning at age 18. Physical Findings: A clinical breast exam by your physician is recommended on an annual basis and results should be correlated with mammographic findings. MG 3D Screening Mammo W/Cad Bilateral CC and MLO view(s) were taken. Prior study comparison: April 13, 2017, bilateral MG 3d diag mammo w/cad MARCELO. March 14, 2016, bilateral MG 3d screening mammo w/cad. The breast tissue is heterogeneously dense. This may lower the sensitivity of mammography. There is a stable benign appearing round circumscribed right retroareolar mass back to 2015. No suspicious abnormality. No significant changes when compared with prior studies. ASSESSMENT: Benign, BI-RAD 2 RECOMMENDATION: Routine screening mammogram of both breasts in 1 year.
== END | disposition home or self-care (01) ==
LOC: RADMAMWWP 06:53
PROVIDERS: ATTEND Internal Medicine
DX: Z12.31 Encounter for screening mammogram for malignant neoplasm of breast (principal)
CPT/HCPCS: 77063; 77067

== ENCOUNTER → 2018-11-22 | Outpatient (CLI) | payer OTHER ==
[2018-11-22 13:47] LABS: Prothrombin Time 10.4 sec (9.0-12.0)
[2018-11-22 13:49] LABS: Basophils % (A) 1 %; Eosinophils # (A) 0.1 k/uL (0-0.7); Eosinophils % (A) 2 %; HCT 39.5 % (34.0-46.0); HGB 12.7 gm/dL (11.4-16.0); Lymphocytes # (A) 1.4 k/uL (1.0-4.8); Lymphocytes % (A) 28 %; MCH 28.9 pg (25.0-35.0); MCHC 32.3 g/dL (31.0-37.0); MCV 89.4 fL (80.0-100.0); Mean Platelet Volume 6.5; Monocytes # (A) 0.2 k/uL (0-1.0); Monocytes % (A) 4 %; Neutrophils # (A) 3.3 k/uL (1.3-7.7); Neutrophils % (A) 65 %; Platelet Count 304 k/uL (150-450); RBC 4.42 m/uL (3.80-5.40); WBC 5.1 k/uL (3.8-10.6)
[2018-11-22 14:02] LABS: Potassium 4.2 mmol/L (3.5-5.1)
== END | disposition home or self-care (01) ==
LOC: LABPAT 12:53
PROVIDERS: ATTEND Orthopaedic Surgery
DX: Z01.818 Encounter for other preprocedural examination (principal); Z01.812 Encounter for preprocedural laboratory examination; M17.12 Unilateral primary osteoarthritis, left knee; Z79.01 Long term (current) use of anticoagulants
CPT/HCPCS: 36415; 80051; 85025; 85610; 87070; 93005

== ENCOUNTER → 2018-12-18 | Outpatient (CLI) | payer OTHER ==
--- NOTE | 2018-12-19 08:57 | XR ---
2 view abdomen HISTORY: N.20, right-sided pain, history of stones 2 views of the abdomen, comparison to prior CT scan dated April 27, 2006 Lung bases are clear. There is no evident bowel obstruction or pneumoperitoneum. There is a calcifica tion present in the right paraspinal location at L4 level measuring approximately 7 mm. Degenerative disc changes visualized at the L4-5 level. Slight spinal curvature. Probable phlebolith in the right hemipelvis. IMPRESSION: Right ureteral calculus.
== END | disposition home or self-care (01) ==
LOC: LABWHC1 15:46
PROVIDERS: ATTEND Family Medicine
DX: N20.1 Calculus of ureter (principal)
CPT/HCPCS: 74018

== ENCOUNTER → 2018-12-28 | Outpatient (CLI) | payer OTHER ==
[2018-12-28 10:21] LABS: Basophils % (A) 1 %; Eosinophils # (A) 0.1 k/uL (0-0.7); Eosinophils % (A) 2 %; HGB 13.6 gm/dL (11.4-16.0); Lymphocytes # (A) 1.5 k/uL (1.0-4.8); Lymphocytes % (A) 27 %; MCH 29.6 pg (25.0-35.0); MCHC 33.2 g/dL (31.0-37.0); MCV 89.2 fL (80.0-100.0); Mean Platelet Volume 6.6; Monocytes # (A) 0.3 k/uL (0-1.0); Monocytes % (A) 5 %; Neutrophils # (A) 3.6 k/uL (1.3-7.7); Neutrophils % (A) 64 %; Platelet Count 316 k/uL (150-450); RDW 12.9 % (11.5-15.5); WBC 5.6 k/uL (3.8-10.6)
[2018-12-28 10:32] LABS: African American GFR (CKD) >90 (>60 ml/min/1.73 sqM); Anion Gap 9 mmol/L; Blood Urea Nitrogen 17 mg/dL (7-17); Calcium 9.5 mg/dL (8.4-10.2); Carbon Dioxide 26 mmol/L (22-30); Chloride 105 mmol/L (98-107); Glucose 108 mg/dL (74-99); Potassium 4.2 mmol/L (3.5-5.1); Sodium 140 mmol/L (137-145)
[2018-12-28 10:34] LABS: INR 0.9 (<1.2); Prothrombin Time 9.9 sec (9.0-12.0)
== END ==
LOC: LABPAT 09:59
PROVIDERS: ATTEND Urology
DX: Z01.818 Encounter for other preprocedural examination (principal); N20.1 Calculus of ureter
CPT/HCPCS: 36415; 80048; 85025; 85610; 93005

== ENCOUNTER 2018-12-31 09:48 | Day surgery (SDC) | payer OTHER ==
[2018-12-03 10:01] VITALS: BMI 31.7
--- NOTE | 2018-12-30 10:35 | HP ---
HISTORY AND PHYSICAL REASON FOR ADMISSION: Surgery scheduled for 12/31/2018 Miley Pennington is a 53-year-old patient seen with symptomatic left knee osteoarthritis. We discussed options for treatment. She elected to proceed with left total knee arthroplasty. Consent regarding procedure obtained. PAST MEDICAL HISTORY: Depression, asthma. PAST SURGICAL HISTORY: Right knee arthroscopy. MEDICATIONS: Zoloft, Singulair, Zyrtec. ALLERGIES: BACTRIM, MIGRAINE MEDICATIONS. SOCIAL HISTORY: She denies current tobacco use. PHYSICAL EXAMINATION: Evaluation of the left knee: Range of motion 0-115. Mild effusion. Tenderness medial joint line. Crepitus medial and patellofemoral compartments. Ligaments stable. Hip rotation without pain. Distal neurovascular exam intact. RADIOGRAPHS: Left knee radiographs reveal severe medial moderate patellofemoral compartment osteoarthritis. IMPRESSION: 1. Left knee osteoarthritis. 2. Asthma. PLAN: Left total knee arthroplasty. Surgery is 12/31/2018. MMODL / IJN: [id number] /
[~2018-12-31 09:48] MED LIST changes: +HYDROmorphone 0.5 MG/0.5 ML SYRINGE IVP PRN; -HYDROmorphone 1 MG/ML 1 ML SYRINGE IVP PRN; +ROPIVACAINE 246.25 MG, EPINEPHrine 0.5 MG, KETOROLAC 30 MG, cloNIDine HCL/PF 80 MCG, WA... MISCELLANE ONE; -SCOPOLAMINE 1.5MG/72HR PATCH TRANSDERM ONE; -ceFAZolin 2 GM in SODIUM CHLORIDE 0.9% 100 ML IVPB ONE; +fentaNYL (PF) 50 MCG/ML 2 ML AMP IV PRN; -fentaNYL (PF) 50 MCG/ML 2 ML AMP IVP PRN
[2018-12-31] MEDS ORDERED: fentaNYL (PF) 50 MCG/ML 2 ML AMP IV ONE (11:04)
[2018-12-31] MEDS: LACTATED RINGERS 1,000 ML IV SCH ×2 (11:25→15:18)
[2018-12-31] MEDS ORDERED: MIDAZOLAM 2 MG/2 ML VIAL ONE (12:37)
[2018-12-31] MEDS ORDERED: SODIUM CHLORIDE 0.9% 100 ML BAG ONE (12:37)
[2018-12-31] MEDS ORDERED: TRANEXAMIC ACID 1,000 MG/10 ML VIAL ONE (12:37)
[2018-12-31] MEDS ORDERED: LIDOCAINE 1% INJ 10MG/ML (20 ML MDV) ONE (12:37)
[2018-12-31] MEDS ORDERED: PROPOFOL 10 MG/ML 20 ML VIAL IV ONE (12:37)
[2018-12-31] MEDS ORDERED: LACTATED RINGERS 1,000 ML IV ONE (13:00)
[2018-12-31] MEDS ORDERED: ceFAZolin 3,000 MG in SODIUM CHLORIDE 0.9% IRRIGATIO 3,000 ML IRRIGATION ONE ×4 (13:11)
[2018-12-31] MEDS ORDERED: HYDROmorphone 0.5 MG/0.5 ML SYRINGE IVP PRN ×2 (14:29)
[2018-12-31] MEDS ORDERED: HYDROcodone/APAP 5-325MG 1 EACH TAB PO PRN (14:29)
[2018-12-31] MEDS ORDERED: NALOXONE 0.4 MG/ML 1 ML VIAL IV PRN (14:29)
[2018-12-31] MEDS ORDERED: ONDANSETRON 4 MG/2 ML VIAL IVP PRN (14:29)
--- NOTE | 2018-12-31 14:29 | P.OP ---
Date of Procedure: 12/31/18 Preoperative Diagnosis: Left knee osteoarthritis Postoperative Diagnosis: Left knee osteoarthritis Procedure(s) Performed: Left total knee arthroplasty Implants: 1. Depuy attune size 5 narrow left cruciate retaining cemented femur 2. Depuy attune size 4 fixed bearing cemented tibial baseplate 3. Depuy attune size 5 fixed bearing cruciate retaining 10 mm tibial insert 4. Depuy attune size 5 fixed bearing 10 mm all polyethylene cemented patella Anesthesia: regional (Adductor canal catheter), local, spinal Surgeon: Tyrese Quinn Digital Marketing Apprentice #1: Ji Hoyos Estimated Blood Loss (ml): 20 Pathology: other (Bone) Condition: stable Disposition: PACU Indications for Procedure: 53-year-old patient seen with symptomatic left knee osteoarthritis. After treatment options were discussed, she elected to proceed with total knee arthroplasty. Operative Findings: See description of procedure Description of Procedure: Patient was taken to the operative suite after having an adductor canal catheter placed by the department of anesthesia for postoperative pain management. Patient underwent a spinal anesthetic by the department of anesthesia. Patient was given preoperative IV intake antibiotics and TXA. A well-padded tourniquet was placed about the left lower extremity. The lower extremity was then prepped and draped in the normal sterile orthopedic fashion. The extremity was elevated, a tourniquet was insufflated to 300. A standard anterior incision was made sharply through skin. Dissection was taken down through the subcutaneous soft tissues down to the extensor mechanism. A medial arthrotomy was performed, patella was everted and knee was flexed. There was advanced osteoarthritis noted. I introduced my distal intramedullary femoral drill. I then introduced the distal femoral cutting jig. David TRINIDAD secured the cutting jig with 2 pins. I held retractors in position while David TRINIDAD performed the distal femoral resection through the guide area we now removed her distal femoral cutting guide. We now placed our 4-in-1 femoral cutting block and positioned and it was secured with 2 pins by David TRINIDAD while I held the block in position. The distal femoral finishing was now completed. A proximal tibial cutting guide was positioned. I held the guide in the appropriate position with both hands well David TRINIDAD inserted stabilizing pins into the guide. Proximal tibial cut was made. We now placed a trial femoral component into position, along with an appropriate size tibial tray and insert. We now took the knee through range of motion and had full extension good flexion and good overall soft tissue balance noted. The patella was everted and stabilized with 2 towel clips held by David TRINIDAD while I performed a flush with patellar quad tendon utilizing a fresh sawblade. We templated the patella, appropriate drill holes were made. An appropriate trial patella was positioned, knee was taken through full range of motion with the patella tracking very nicely. The trial patella was removed. Drill holes were made through the femoral component. All trial components were removed after marking off the appropriate rotation of the tibia. Retractors were now positioned along the proximal tibia. An appropriate keel punch was made with the appropriate size tibial guide by myself on David TRINIDAD assisted by holding retractors. At this point appropriate size implants were chosen and opened. The joint was irrigated copiously with pulse lavage mechanical irrigation. The posterior capsule was infiltrated with local analgesic. The wound was irrigated with pulse lavage mechanical irrigation. We mixed antibiotic methylmethacrylate. We placed the knee into flexion. We placed multiple retractors assisted by David TRINIDAD to expose the proximal tibia. Once the methyl methacrylate was ready, the tibial component was cemented into place removing any excess methylmethacrylate form by both myself and David TRINIDAD. The femoral component was cemented into place removing the removing any excess methylmethacrylate performed by both myself and David TRINIDAD. We then inserted the appropriate size polyethylene tibial insert. We made sure that it was locked into position. We took the knee into full extension, and then back in a flexion making sure we had removed any excess methylmethacrylate. The patellar component was then cemented down and secured with clamp. Excess methylmethacrylate removed. We kept the knee in full extension, patellar clamp in position until methylmethacrylate had hardened. Once it had hardened the patellar clamp was removed. The knee was taken through full range of motion. The patella tracked nicely. There was good soft tissue balancing. The tourniquet was now released. Additional hemostasis was achieved via electrocautery. A second gram of TXA was given. The wound again was irrigated with pulse lavage mechanical irrigation. The superficial soft tissues were infiltrated local analgesic. The extensor mechanism was repaired with Vicryl. We checked the repair with range of motion and it was stable. The subcutaneous soft tissues were repaired with Vicryl in layers. The skin was approximated with pernio/Dermabond. Sterile dressings were applied followed by loose web roll and Jem bandage. The patient was transferred to a bed, and taken to recovery in stable and satisfactory condition. David TRINIDAD assisted with this complex procedure.
[2018-12-31] MEDS ORDERED: ROPIVACAINE 0.2%-NS ON-Q PUMP 1,090 MG, EMPTY PAIN BALL 1 EACH MISCELLANE PRN (14:45)
--- NOTE | 2018-12-31 15:05 | XR ---
EXAMINATION TYPE: XR knee limited LT DATE OF EXAM: 12/31/2018 CLINICAL HISTORY: Left knee pain and arthritis status post total knee replacement. TECHNIQUE: Portable AP and crosstable lateral views of the left knee are obtained immediately postop eratively. COMPARISON: None FINDINGS: Metallic hardware from total left knee arthroplasty is seen and appears satisfactory in al ignment and position. There is evidence of recent surgery with diffuse subcutaneous gas and soft tis jose a swelling noted. IMPRESSION: METALLIC HARDWARE FROM TOTAL LEFT KNEE ARTHROPLASTY IS SATISFACTORY IN ALIGNMENT.
[2018-12-31] MEDS ORDERED: METOCLOPRAMIDE 5 MG TAB PO PRN (15:46)
[2018-12-31] MEDS: HYDROcodone/APAP 5-325MG 1 EACH TAB PO PRN ×2 (16:29→21:59)
[2018-12-31] MEDS: HYDROmorphone 1 MG/ML 1 ML SYRINGE IVP PRN (18:22)
--- NOTE | 2018-12-31 19:44 | P.ANPRN ---
Procedure Note - Anesthesia - Nerve Block Performed Left Adductor Canal Infusion Time Out Performed: Yes Date of Procedure: 12/31/18 Procedure Start Time: 11:04 Procedure Stop Time: :17 Location of Patient: PreOp Indication: Acute Post-Operative Pain, Requested by Surgeon Sedation Type: Sedate with meaningful contact maintained Preparation: Sterile Prep, Sterile Dressing Position: Supine Catheter: Indwelling Needle Types: [place]ajunk Needle Gauge: 21 Ultrasound used to visualize needle placement: Yes Ultrasound used to observe medication spread: Yes Blood Aspirated: No Pain Paresthesia on Injection Noted: No Resistance on Injection: Normal Image Stored and Saved: Yes Events: Uneventful and Well Tolerated (ropi .5% 30cc plus dexamethasone 4mg)
[2018-12-31] MEDS ORDERED: LORATADINE 10 MG TAB PO SCH (21:00)
[2018-12-31] MEDS ORDERED: MULTIVITAMINS, THERA 1 EACH TAB PO SCH (21:00)
[2018-12-31] MEDS ORDERED: MONTELUKAST 10 MG TAB PO SCH (21:00)
[2018-12-31] MEDS ORDERED: SERTRALINE 100 MG TAB PO SCH (21:00)
[2018-12-31] MEDS ORDERED: SENNOSIDES-DOCUSATE SODIUM 1 EACH TAB PO SCH (21:00)
[2019-01-01] MEDS: LACTATED RINGERS 1,000 ML IV SCH ×3 (00:47→11:40)
[2019-01-01] MEDS: HYDROmorphone 1 MG/ML 1 ML SYRINGE IVP PRN (01:39)
[2019-01-01] MEDS: HYDROcodone/APAP 5-325MG 1 EACH TAB PO PRN ×3 (04:52→15:16)
[2019-01-01 07:13] LABS: Basophils # (A) 0.1 k/uL (0-0.2); Basophils % (A) 0 %; Eosinophils % (A) 0 %; HCT 34.2 % (34.0-46.0); HGB 11.6 gm/dL (11.4-16.0); Lymphocytes % (A) 9 %; MCH 30.5 pg (25.0-35.0); MCHC 33.8 g/dL (31.0-37.0); MCV 90.2 fL (80.0-100.0); Mean Platelet Volume 6.5; Monocytes # (A) 0.5 k/uL (0-1.0); Monocytes % (A) 5 %; Neutrophils % (A) 85 %; Platelet Count 274 k/uL (150-450); RBC 3.79 m/uL (3.80-5.40); RDW 12.9 % (11.5-15.5); WBC 10.7 k/uL (3.8-10.6)
--- NOTE | 2019-01-01 07:43 | P.PN ---
Progress Note - Text 01/01 650am 53-year-old female status post total knee replacement by Dr. Quinn. Patient has On-Q pump for postop pain control with the solution running at 8 mL an hour with a VAS of 4. Doing well. Plan to continue On-Q pump infusion
[2019-01-01 08:06] VITALS: BP 97/61; PULSE 66; RESP 16; TEMP 97.5
[2019-01-01] MEDS ORDERED: MELOXICAM 7.5 MG TAB PO SCH (09:00)
[2019-01-01] MEDS ORDERED: ENOXAPARIN 30 MG/0.3 ML SYRINGE SQ SCH (09:00)
--- NOTE | 2019-01-01 13:14 | P.PN ---
Subjective Progress Note Date: 01/01/19 Principal diagnosis: Status post left total knee arthroplasty patient evaluated at bedside, she's doing very well. Her pain is well controlled. She's done well with therapy. Denies chest pain or shortness of breath. Objective - Vital Signs Vital signs: Vital Signs Temp 97.5 F L 01/01/19 07:00 Pulse 66 01/01/19 07:00 Resp 16 01/01/19 07:00 BP 97/61 01/01/19 07:00 Pulse Ox 96 01/01/19 07:00 Intake & Output 12/31/18 01/01/19 01/01/19 18:59 06:59 18:59 Intake Total 1651 900 Output Total 20 Balance 1631 900 Weight 83.007 kg Intake: IV 1651 Intake, IV Titration 900 Amount Lactated Ringers 1,000 ml 900 @ 100 mls/hr IV .Q10H [facility] Rx#:[id number] Output: Estimated Blood Loss 20 Other: # Voids 1 - Exam Left lower extremity: Incision is clean, dry, and intact. The exofin fusion tape is in good condition. There is minimal soft tissue swelling and ecchymosis surrounding the medial and lateral aspects of the incision. Calf is soft, no tenderness with palpation. Plantar flexion, dorsiflexion, EHL, FHL are intact. Sensory exam to light touch throughout the extremity is intact, dorsal pedis pulses 2+.] - Labs CBC & Chem 7: 01/01/19 06:29 Labs: Abnormal Lab Results - Last 24 Hours (Table) 01/01/19 Range/Units 06:29 WBC 10.7 H (3.8-10.6) k/uL RBC 3.79 L (3.80-5.40) m/uL Neutrophils # 9.0 H (1.3-7.7) k/uL Assessment and Plan Plan: Assessment: Postoperative day #1 status post left total knee arthroplasty Plan: Pain control, plan for discharge home on oral medication GI and DVT prophylaxis, patient will have Lovenox tomorrow, she has a scheduled procedure for Monday. After procedure she will resume aspirin 325 mg daily Wound care instructions discussed Home physical therapy and nursing Medical recommendations Encourage incentive spirometer Stable for discharge home today Time with Patient: Less than 30
--- NOTE | 2019-01-01 13:16 | P.DS ---
Providers Date of admission: 12/31/2018 Expected date of discharge: 01/01/19 Attending physician: Tyrese Quinn Primary care physician: Raphael [facility] Course: Date of admission: 12/31/2018 Date of discharge: 01/01/2019 Admission diagnosis: Status post left total knee arthroplasty Discharge diagnosis: Same Attending physician: Dr. Quinn Surgical procedures: Left total knee arthroplasty Brief history: Patient is a 53 year old female with a history of progressive primary left knee osteoarthritis. At this point patient has failed conservative treatment measures and has opted to proceed with a elective left total knee arthroplasty. Hospital course: Details of patient's surgery can be found in operative report. Patient tolerated the procedure well and was subsequently transported to orthopedic floor. Patient's orthopeidc and medical care was provided daily. Patient had daily laboratory tests performed for evaluation of overall blood counts. Patient had daily physical therapy to include strengthening range of motion as well as education with walker ambulation. Patient had daily CPM usage as part of their physical therapy program. Patient was treated with Lovenox for their postoperative DVT prophylaxis during their inpatient stay. Patient was noted to have a relatively uneventful postoperative course. Patient reported satisfactory pain control with oral pain medications by postoperative day 0. Patient showed satisfactory progress with physical therapy. Patient moved steadily through the program and had no difficulty meeting the goals by postoperative day 1. Given patient's otherwise satisfactory course and having met physical therapy goals, plan is to discharge patient home on postoperative day 1. Discharge condition/disposition: Patient will be discharged home in stable condition. Discharge medications: Instructions are given on resumption of patient's normal daily medications per primary care recommendation, in addition patient will be prescribed Reading 7.5 mg/325 mg, aspirin 325 mg. Discharge instructions: 1. Wound care and infection precautions, keep incision dry and covered while showering, no lotions, creams, moisturizers. No soaking, tubs, pools, hottubs. Do not scrub over the incision. 2. Weight-bear as tolerated with walker / cane until follow-up. 3. Ice and elevate when necessary. Do not exceed 20 minutes per hour with ice pack. 4. Utilize compression sleeve until seen at first follow up appointment. 5. Visiting nursing care. 6. Home physical therapy including home CPM. 7. Pain meds and anticoagulants per prescription. 8. Pain medication has potential to cause constipation. Increase oral fluid and fiber intake. Contact primary care provider if you have not had a bowel movement within 48 hours after discharge 9. No anti-inflammatory medication until discussed at first post operative visit, this including Motrin, Aleve, Mobic, Diclofenac. 10. Follow up in office at 2 weeks postop with David Hoyos PA-C 11. Follow up with your primary care doctor 7-10 days after discharge. 12. Contact [facility] with any questions, . Procedures: Left total knee arthroplasty Patient Condition at Discharge: Good Plan - Discharge Summary Discharge Rx Participant: Yes New Discharge Prescriptions: New Enoxaparin [Lovenox] 40 mg SQ DAILY #1 syringe Aspirin 325 mg PO DAILY #30 tab HYDROcodone/APAP 7.5-325MG [[place] 7.5] 1 - 2 each PO Q6HR PRN #56 tab PRN Reason: Pain Continue Cetirizine HCl [Zyrtec] 10 mg PO HS Sertraline [Zoloft] 100 mg PO HS Multivitamins, Thera [Multivitamin (formulary)] 1 tab PO HS Metoclopramide [Reglan] 5 mg PO BID PRN PRN Reason: Heartburn Montelukast [Singulair] 10 mg PO HS Diclofenac Sodium [Voltaren] 75 mg PO BID PRN PRN Reason: Pain Cholecalciferol (Vitamin D3) [Vitamin D3] 2,000 unit PO WEEKLY Discharge Medication List Cetirizine HCl [Zyrtec] 10 mg PO HS 11/04/14 [History] Sertraline [Zoloft] 100 mg PO HS 11/04/14 [History] Multivitamins, Thera [Multivitamin (formulary)] 1 tab PO HS 01/01/15 [History] Metoclopramide [Reglan] 5 mg PO BID PRN 07/01/16 [History] Diclofenac Sodium [Voltaren] 75 mg PO BID PRN 11/26/18 [History] Montelukast [Singulair] 10 mg PO HS 11/26/18 [History] Cholecalciferol (Vitamin D3) [Vitamin D3] 2,000 unit PO WEEKLY 12/31/18 [History] Aspirin 325 mg PO DAILY #30 tab 01/01/19 [Rx] Enoxaparin [Lovenox] 40 mg SQ DAILY #1 syringe 01/01/19 [Rx] HYDROcodone/APAP 7.5-325MG [[place] 7.5] 1 - 2 each PO Q6HR PRN #56 tab 01/01/19 [Rx] Follow up Appointment(s)/Referral(s): [facility], [NON-STAFF] - Ji Hoyos PAC [PHYSICIAN CORPORATE TRAFFIC MANAGER] - 01/16/19 2:50 pm Patient Instructions/Handouts: Knee Replacement (DC) Activity/Diet/Wound Care/Special Instructions: Orthopedic Discharge Instructions: 1. Wound care and infection precautions, keep incision dry and covered while showering, no lotions, creams, moisturizers. No soaking, pools, hot tubs. Do not scrub over incision. 2. Weight-bear as tolerated with walker / cane until follow-up. 3. Ice and elevate when necessary. Do not exceed 20 minutes per hour with ice pack. 4. Utilize compression sleeve until seen at first follow up appointment. 5. Pain meds and anticoagulants per prescription. 6. Pain medication has potential to cause constipation. Increase oral fluid and fiber intake. Contact primary care provider if you have not had a bowel movement within 48 hours after discharge. 7. No anti-inflammatory medication until discussed at first post operative visit, this including Motrin, Aleve, Mobic, Diclofenac. 8. Follow up in office at 2 weeks postop with David Hoyos PA-C 9. Follow up with your primary care doctor 7-10 days after discharge. 10. Contact [facility] with any questions, [phone]. 11. *Please call [facility] once home to arrange delivery of Continuous Passive Motion (CPM) machine: [phone] Discharge Disposition: HOME WITH HOME HEALTH SERVICES
--- NOTE | 2019-01-01 14:46 | P.CONS ---
History of Present Illness - Reason for Consult Consult date: 01/01/19 Medical management - History of Present Illness This is a 53-year-old female patient of Dr. Carlin with past medical history of inactive asthma, migraine headaches, gastroesophageal reflux disease, depression, osteoarthritis renal stones. Patient has been brought into the hospital on the care of Dr. Quinn status post left knee arthroplasty. Patient states her pain is well-controlled. Q pump is in place. She anticipate discharge home later today. She does state that she is scheduled for a lithotr ipsy on Monday with Dr. Gross. Patient will be provided a prescription for Lovenox to be used on Monday, no anticoagulation on with anticipation of procedure on Monday. Patient will resume anticoagulation with aspirin following the renal procedure. Patient denies having any chest pain, shortness of breath, no lightheadedness or dizziness. She has been afebrile and vital signs have been stable. She denies nausea or vomiting. Review of Systems Constitutional: Denies chills, Denies fatigue, Denies fever, Denies lethargy, Denies malaise, Denies poor appetite, Denies weight loss Eyes: denies blurred vision, denies pain Ears, nose, mouth and throat: Denies dysphagia, Denies headache, Denies nasal congestion, Denies nasal discharge, Denies sore throat Cardiovascular: Denies chest pain, Denies decreased exercise tolerance, Denies dyspnea on exertion, Denies edema, Denies shortness of breath Respiratory: Denies cough, Denies cough with sputum, Denies dyspnea Gastrointestinal: Denies abdominal pain, Denies diarrhea, Denies loss of appetite, Denies nausea, Denies vomiting Genitourinary: Reports kidney stones, Denies dysuria, Denies hematuria, Denies urgency, Denies urinary frequency Musculoskeletal: Denies frequent falls, Denies gait dysfunction, Denies muscle weakness, Denies myalgias Integumentary: Denies pruritus, Denies rash Neurological: Denies numbness, Denies weakness Psychiatric: Denies anxiety, Denies depression Endocrine: Denies fatigue, Denies weight change Past Medical History Past Medical History: Asthma, GERD/Reflux, Osteoarthritis (OA), Renal Disease Additional Past Medical History / Comment(s): migraines, renal stones History of Any Multi-Drug Resistant Organisms: None Reported Past Surgical History: Section, Orthopedic Surgery Additional Past Surgical History / Comment(s): luis bunionectomy, 2, right knee arthroplasty, left knee arthroplasty Past Anesthesia/Blood Transfusion Reactions: Motion Sickness Additional Past Anesthesia/Blood Transfusion Reaction / Comm: post op nausea,no hx blood transfusion,daughter takes a long time to come out of anesthesia Past Psychological History: Depression Smoking Status: Never smoker Past Alcohol Use History: None Reported Additional Past Alcohol Use History / Comment(s): The patient is a nonsmoker. She denies any marijuana or illicit drug use. She drinks alcohol occasionally. Patient was at home with her . Past Drug Use History: None Reported - Past Family History Father Family Medical History: Cancer Additional Family Medical History / Comment(s): Father has CLL. Mother Family Medical History: Cancer, Deep Vein Thrombosis (DVT) Additional Family Medical History / Comment(s): Mother has history of lymphoma, breast cancer and DVT. Brother(s) Additional Family Medical History / Comment(s): Patient has 1 brother with asthma and ALLERGIES. Sister(s) Additional Family Medical History / Comment(s): Patient has one sister with bipolar and major depression. Daughter(s) Additional Family Medical History / Comment(s): Patient has one son that has asthma as a child only but also developed MRSA pneumonia. Patient has one daughter with depression, anxiety and bipolar disorder. Medications and Allergies Home Medications Medication Instructions Recorded Confirmed Type Cetirizine HCl [Zyrtec] 10 mg PO HS 11/04/14 12/31/18 History Sertraline [Zoloft] 100 mg PO HS 11/04/14 12/31/18 History Multivitamins, Thera [Multivitamin 1 tab PO HS 01/01/15 12/31/18 History (formulary)] Metoclopramide [Reglan] 5 mg PO BID PRN 07/01/16 12/31/18 History Diclofenac Sodium [Voltaren] 75 mg PO BID PRN 11/26/18 12/31/18 History Montelukast [Singulair] 10 mg PO HS 11/26/18 12/31/18 History Cholecalciferol (Vitamin D3) 2,000 unit PO WEEKLY 12/31/18 12/31/18 History [Vitamin D3] Aspirin 325 mg PO DAILY #30 tab 01/01/19 Rx Enoxaparin [Lovenox] 40 mg SQ DAILY #1 syringe 01/01/19 Rx HYDROcodone/APAP 7.5-325MG [[place] 1 - 2 each PO Q6HR PRN #56 tab 01/01/19 Rx 7.5] Allergies Allergy/AdvReac Type Severity Reaction Status Date / Time sulfamethoxazole Allergy Swelling Verified 12/31/18 10:39 [From Bactrim] of tongue and throat trimethoprim [From Bactrim] Allergy Swelling Verified 12/31/18 10:39 of tongue and throat migraine medication Allergy SWELLING Uncoded 12/31/18 10:39 OF TONGUE AND THROAT Physical Exam Vitals: Vital Signs Temp Pulse Resp BP Pulse Ox 01/01/19 07:00 97.5 F L 66 16 97/61 96 01/01/19 00:55 97.7 F 65 18 94/59 96 12/31/18 19:29 98.1 F 83 18 99/65 96 12/31/18 18:24 81 107/68 12/31/18 18:00 74 110/54 12/31/18 15:50 97.7 F 68 18 100/66 100 12/31/18 15:15 72 16 110/64 98 12/31/18 14:58 71 16 108/60 98 12/31/18 14:46 74 16 107/62 98 12/31/18 14:26 97.1 F L 77 14 105/57 97 12/31/18 10:58 97.4 F L 68 16 118/63 100 Intake and Output 12/31/18 01/01/19 01/01/19 22:59 06:59 14:59 Intake Total 900 Balance 900 Intake: Intake, IV Titration 900 Amount Lactated Ringers 1,000 ml 900 @ 100 mls/hr IV .Q10H [facility] Rx#:[id number] Other: # Voids 1 Gen: This is a 53-year-old female. Patient is resting in bed and appears to be comfortable and in no acute distress. HEENT: Head is atraumatic, normocephalic. Pupils equal, round. Sclerae is anicteric. NECK: Supple. No JVD. No lymphadenopathy. No thyromegaly. LUNGS: Clear to auscultation. No wheezes or rhonchi. No intercostal retractions. HEART: Regular rate and rhythm. No murmur. ABDOMEN: Soft. Bowel sounds are present. No masses. No tenderness. EXTREMITIES: No pedal edema. No calf tenderness. Small dressing in place to the left knee. Q pump in place. NEUROLOGICAL: Patient is awake, alert and oriented x3. Cranial nerves 2 through 12 are grossly intact. Results CBC & Chem 7: 01/01/19 06:29 Labs: Abnormal Lab Results - Last 24 Hours (Table) 01/01/19 Range/Units 06:29 WBC 10.7 H (3.8-10.6) k/uL RBC 3.79 L (3.80-5.40) m/uL Neutrophils # 9.0 H (1.3-7.7) k/uL Assessment and Plan Plan: 1. Osteoarthritis status post left knee arthroplasty. Continue PT OT, pain management per orthopedics. 2. Seasonal ALLERGIES. Continue Zyrtec and Singulair. 3. Gastroesophageal reflux disease. 4. Recurrent depression. Continue Zoloft. 5. DVT prophylaxis. Patient to use Lovenox 40 mg subcu on Monday, no anticoagulation on or Monday morning in preparation for lithotripsy scheduled on Monday. 6. Renal stones, scheduled for lithotripsy on Monday. Discharge plan: home with [facility] Impression and plan of care have been directed as dictated by the signing physician. Aleja Diallo nurse practitioner acting as scribe for signing physician.
[2019-01-07] MEDS ORDERED: CHOLECALCIFEROL 1,000 UNIT TAB PO SCH (09:00)
== END 2019-01-01 16:59 | disposition home health service (06) ==
LOC: OR 09:48 → 4SSUR 15:04 → OR 01-01 16:59
PROVIDERS: ATTEND Orthopaedic Surgery
DX: M17.12 Unilateral primary osteoarthritis, left knee (principal); J45.909 Unspecified asthma, uncomplicated; F32.9 Major depressive disorder, single episode, unspecified; G43.909 Migraine, unspecified, not intractable, without status migrainosus; K21.9 Gastro-esophageal reflux disease without esophagitis; N20.0 Calculus of kidney; Z88.2 Allergy status to sulfonamides; Z88.8 Allergy status to other drugs, medicaments and biological substances; Z96.651 Presence of right artificial knee joint; Z98.890 Other specified postprocedural states; Z79.82 Long term (current) use of aspirin; Z79.899 Other long term (current) drug therapy; Z80.6 Family history of leukemia; Z82.49 Family history of ischemic heart disease and other diseases of the circulatory system; Z80.3 Family history of malignant neoplasm of breast; Z82.5 Family history of asthma and other chronic lower respiratory diseases; Z81.8 Family history of other mental and behavioral disorders
CPT/HCPCS: 97161; 81025; 64448; 76942; 85025; 88300; 73560; 27447; C1776; C1713; J2250; J0171; J1100; J0690 ×3; J2405; J3010; J1885; J1650; J1170 ×2; J2795 ×2; J0735

== ENCOUNTER 2019-01-04 13:45 | Day surgery (SDC) | payer OTHER ==
[2019-01-02 15:35] VITALS: BMI 31.4
--- NOTE | 2019-01-03 17:08 | P.HPIHPCON ---
History of Present Illness Chief Complaint: Right ureteral calculi Ms Pennington is 53 yo female that presented to our clinic with a 7 mm right-sided ureteral calculi. I discussed with her the options including ureteroscopy and shockwave lithotripsy. Discussed with him the risk and benefit of each approach. He elected to proceed with ureteroscopy. I Discussed with him with ureteroscopy there is a risk of bleeding infection and ureteral perforation. Discussed the risk of anesthesia with him. He understood all the risk and agreed to proceed with right-sided ureteroscopy. Of note she had recent knee replacement, I discussed with her if she develops an infection she is at risk of infected her prosthesis. Given patient intractable pain decision was made to proceed with right sided ureteroscopy Consent for Procedure: I have explained the operation/procedure to the patient, including the risks, benefits, side effects, alternative therapies (including not receiving the proposed treatment or service), the likelihood of the patient achieving his/her goals, and potential recuperation problems for the procedure/sedation/analgesia, as well as any blood products, if indicated. I also explained to the patient the risks, benefits and side effects of the alternatives, as well as the risks related to not receiving the proposed procedure, care, treatment, or services. Past Medical History Past Medical History: Asthma, Osteoarthritis (OA) Additional Past Medical History / Comment(s): kidney stones,steroids Sep 2018,recent tx dog bite,hx migraines History of Any Multi-Drug Resistant Organisms: None Reported Past Surgical History: Section, Joint Replacement, Orthopedic Surgery Additional Past Surgical History / Comment(s): total lt knee 12-31-18,rt total knee,c sect x2,luis bunionectomy Past Anesthesia/Blood Transfusion Reactions: Family History of Problems w/ Anesthesia, Motion Sickness, Postoperative Nausea & Vomiting (PONV) Additional Past Anesthesia/Blood Transfusion Reaction / Comment(s): post op nausea,no hx blood transfusion, dtr takes a long time to come out of anesthesia Smoking Status: Former smoker - Past Family History Father Family Medical History: Cancer Mother Family Medical History: Cancer, Deep Vein Thrombosis (DVT) Medications and Allergies Home Medications Medication Instructions Recorded Confirmed Type Cetirizine HCl [Zyrtec] 10 mg PO HS 11/04/14 01/03/19 History Sertraline [Zoloft] 100 mg PO HS 11/04/14 01/03/19 History Multivitamins, Thera [Multivitamin 1 tab PO HS 01/01/15 01/03/19 History (formulary)] Metoclopramide [Reglan] 5 mg PO BID PRN 07/01/16 01/03/19 History Diclofenac Sodium [Voltaren] 75 mg PO BID PRN 11/26/18 01/03/19 History Montelukast [Singulair] 10 mg PO HS 11/26/18 01/03/19 History Cholecalciferol (Vitamin D3) 2,000 unit PO WEEKLY 12/31/18 01/03/19 History [Vitamin D3] Ciprofloxacin HCl [Cipro] 500 mg PO Q12HR 7 Days #14 tablet 01/01/19 01/03/19 Rx Enoxaparin [Lovenox] 40 mg SQ DAILY #1 syringe 01/01/19 01/03/19 Rx HYDROcodone/APAP 7.5-325MG [[place] 1 - 2 each PO Q6HR PRN #56 tab 01/01/19 01/03/19 Rx 7.5] Allergies Allergy/AdvReac Type Severity Reaction Status Date / Time sulfamethoxazole Allergy Swelling Verified 01/03/19 08:59 [From Bactrim] of tongue and throat trimethoprim [From Bactrim] Allergy Swelling Verified 01/03/19 08:59 of tongue and throat migraine medication Allergy SWELLING Uncoded 01/03/19 08:59 OF TONGUE AND THROAT Surgical - Exam - General well developed, well nourished - Respiratory normal expansion, normal respiratory effort - Abdomen Abdomen: soft, non tender Assessment and Plan Assessment: 53 yo female with 7mm right ureteral stone -OR for right sided ureteroscopy, holmium laser lithotripsy, stone basketting and stent placement
--- NOTE | 2019-01-04 13:41 | XR ---
KUB HISTORY: Preop cystoscopy Frontal KUB submitted and correlated to prior abdomen 05/25/2015 MR recently 12/18/2018 There is a calcification superimposed over the right kidney measuring approximately 6 mm. There is ca lcification in the right hemipelvis which is stable and may represent phlebolith. Calcifications seen overlying the right sacral ala on previous exam is no longer seen. Additional possible phleboliths p resent within the pelvis on the left. There is retained fecal debris which may obscure underlying det ail, correlate for fecal stasis. IMPRESSION: Possible right-sided nephrolithiasis. There may been interval migration of the calcificat ion from the ureter into the kidney.
[~2019-01-04 13:45] MED LIST changes: -ACETAMINOPHEN TAB 500 MG TAB PO ONE; +CIPROFLOXACIN/DEXTROSE PMX 400 MG in DEXTROSE/WATER 1 200ML.BAG IVPB ONE; +GENTAMICIN 100 MG in SODIUM CHLORIDE 0.9% 100 ML IVPB ONE; +HEPARIN SODIUM,PORCINE 5,000 UNIT/ML 1 ML VIAL SQ STA; -HYDROmorphone 0.5 MG/0.5 ML SYRINGE IVP PRN; +LACTATED RINGERS 1,000 ML IV SCH; -MELOXICAM 7.5 MG TAB PO ONE; -MIDAZOLAM 2 MG/2 ML VIAL IV PRN; -ROPIVACAINE 246.25 MG, EPINEPHrine 0.5 MG, KETOROLAC 30 MG, cloNIDine HCL/PF 80 MCG, WA... MISCELLANE ONE; -TRANEXAMIC ACID 1,000 MG in SODIUM CHLORIDE 0.9% 100 ML IVPB ONE; -fentaNYL (PF) 50 MCG/ML 2 ML AMP IV PRN
[2019-01-04] MEDS ORDERED: MIDAZOLAM 2 MG/2 ML VIAL ONE (14:55)
[2019-01-04] MEDS ORDERED: fentaNYL (PF) 50 MCG/ML 2 ML AMP ONE (14:55)
[2019-01-04] MEDS ORDERED: PROPOFOL 10 MG/ML 20 ML VIAL IV ONE (14:55)
[2019-01-04] MEDS ORDERED: LIDOCAINE 1% INJ 10MG/ML (20 ML MDV) ONE (14:55)
[2019-01-04] MEDS ORDERED: SUCCINYLCHOLINE CHLORIDE 100 MG/5 ML SYR IV ONE (14:55)
[2019-01-04] MEDS ORDERED: IOPAMIDOL-370 50ML BTL INJ ONE ×2 (15:31)
[2019-01-04 16:32] VITALS: TEMP 97.4
--- NOTE | 2019-01-04 16:35 | FL ---
Fluoroscopy HISTORY: Stent placement 9 seconds fluoroscopy time supplied to the referring clinician. 2 intraoperative C-arm images docume nt the procedure. See dictated report from urology.
[2019-01-04 17:14] VITALS: BP 125/68; RESP 17
[2019-01-04 17:30] VITALS: PULSE 97
--- NOTE | 2019-01-04 22:33 | P.OP ---
Date of Procedure: 01/04/19 Preoperative Diagnosis: right ureteral calculi Postoperative Diagnosis: right renal calculi Procedure(s) Performed: Cystoscope, Right RPG, ureteroscopy, holmium laser lithotripsy, stone basketting and sten placement Implants: 4.8 Fr X 26 cm stent on right Anesthesia: WILLIAM Surgeon: Kyle Gross Pathology: other (right renal calculi) Condition: stable Disposition: PACU Indications for Procedure: Ms Pennington is 53 yo female that presented to our clinic with a 7 mm right-sided ureteral calculi. I discussed with her the options including ureteroscopy and shockwave lithotripsy. Discussed with her the risk and benefit of each approach. She elected to proceed with ureteroscopy. I Discussed with her with ureteroscopy there is a risk of bleeding infection and ureteral perforation. Discussed the risk of anesthesia with her. She understood all the risk and agreed to proceed with right-sided ureteroscopy. Of note she had recent knee replacement, I discussed with her if she develops an infection she is at risk of infected her prosthesis. Given patient intractable pain decision was made to proceed with right sided ureteroscopy. I discussed her case with her orthopedic surgeon Dr Dorsey prior to proceeding Operative Findings: large stone in the lower pole of the right kidney Description of Procedure: The patient was brought to the operating room, general anesthesia was induced. She was prepped and draped in sterile fashion and placed in a dorsal lithotomy position. Cystoscope fitted with a 22-[place]izen [place] sheath was inserted per urethra cystoscopy was performed which showed no suspicious lesions in the bladder. Attention was carried to the right ureteral orifice a 0.035 sensor wire was advanced through the scope and up to the right ureter into the renal pelvis. The cystoscope was withdrawn with the wire in place. Next a semirigid ureteroscope was inserted and advanced up the right ureter. No stone was visualized in the ureter. Next the ureteroscope was removed with the wire in place. Next a 11 x 13-[place]izen [place] access sheath was advanced over the wire and into the renal pelvis. Flexibile ureteroscope was inserted through the sheath and renoscopy was performed which showed large stone in the lower pole. Stones was fragmented using the holmium laser and fragments were removed using the stone basket. Pullback ureteroscopy was performed which showed no injury to the ureter or residual stones. Next a a ureteral stent was advanced over the wire and a proximal curl was visualized using fluoroscopy and the distal curl was visualized using the cystoscope. The bladder was emptied at the end of the case, the patient tolerated the procedure well and was taken to PACU in stable condition
== END 2019-01-04 16:20 | disposition home or self-care (01) ==
LOC: OR 13:45
PROVIDERS: ATTEND Urology
DX: N20.0 Calculus of kidney (principal); J45.909 Unspecified asthma, uncomplicated; M19.90 Unspecified osteoarthritis, unspecified site; F32.9 Major depressive disorder, single episode, unspecified; K21.9 Gastro-esophageal reflux disease without esophagitis; Z88.2 Allergy status to sulfonamides; Z88.8 Allergy status to other drugs, medicaments and biological substances; Z87.442 Personal history of urinary calculi; Z87.828 Personal history of other (healed) physical injury and trauma; Z86.69 Personal history of other diseases of the nervous system and sense organs; Z98.890 Other specified postprocedural states; Z96.653 Presence of artificial knee joint, bilateral; Z91.89 Other specified personal risk factors, not elsewhere classified; Z87.891 Personal history of nicotine dependence; Z79.899 Other long term (current) drug therapy; Z84.89 Family history of other specified conditions; Z80.9 Family history of malignant neoplasm, unspecified; Z82.49 Family history of ischemic heart disease and other diseases of the circulatory system; Z79.01 Long term (current) use of anticoagulants; Z79.891 Long term (current) use of opiate analgesic
CPT/HCPCS: 81025; 82365; 74420; 74018; 52356; C2625; J2250; J1644; J1100; J2405; J2001; J3010; J1580; J0330; J2704; Q9967

== ENCOUNTER → 2019-03-14 | Outpatient (CLI) | payer OTHER ==
--- NOTE | 2019-03-14 15:06 | US ---
EXAMINATION TYPE: US kidneys/renal and bladder DATE OF EXAM: 03/14/2019 COMPARISON: NONE CLINICAL HISTORY: calculus of kidney N20.0. hx of stones. EXAM MEASUREMENTS: Right Kidney: 10.6 x 4.7 x 5.0 cm Left Kidney: 11.5 x 5.0 x 3.3 cm Right Kidney: Prominent fluid-filled renal pelvis 3.6 x 2.1 x 2.4 cm. No [place] hydronephrosis. Left Kidney: No hydronephrosis or masses seen Bladder: Bilateral Jets seen: Yes. No nephrolithiasis is seen. No masses are identified. The urinary bladder is anechoic. Bilateral ureteral jets are seen. IMPRESSION: Fluid-filled right renal pelvis, typically transient and physiologic. No hydronephrosis o f either kidney nor nephrolithiasis seen sonographically.
== END | disposition home or self-care (01) ==
LOC: RADUSWWP 13:36
PROVIDERS: ATTEND Urology
DX: N20.0 Calculus of kidney (principal)
CPT/HCPCS: 76770

== ENCOUNTER → 2019-04-04 | Outpatient (CLI) | payer OTHER ==
--- NOTE | 2019-04-04 16:19 | BD ---
EXAMINATION TYPE: Axial Bone Density DATE OF EXAM: 04/04/2019 COMPARISON: NONE CLINICAL HISTORY: 53-year-old female known osteoporosis Height: 64 Weight: 186.1 FRAX RISK QUESTIONS: Alcohol (3 or more units per day): no Family History (Parent hip fracture): yes Glucocorticoids (More than 3mos): no (Ex: prednisone, prednisolone, methylprednisolone, dexamethasone, and hydrocortisone). History of Fracture in Adulthood: no Secondary Osteoporosis: 1. Type 1 Diabetes: no 2. Hyperthyroidism: no 3. Menopause before 45: no 4. Malnutrition: no 5. Chronic liver disease: no Rheumatoid Arthritis: no Current Tobacco Use: no RISK FACTORS HISTORY OF: Family History of Osteoporosis: yes Active: yes Diet low in dairy products/other sources of calcium: yes If Premenopausal, do you have irregular periods: no Lost more than 2 inches in height since high school: no MEDICATIONS: arthritis med, Lasix, Singulair, zoloft, reguline Additional History: EXAM MEASUREMENTS: Bone mineral densitometry was performed using the [employer] System. Bone mineral density as measured about the Lumbar spine is: ----- L1-L4(G/cm2): 1.389 T Score Values are as follows: ----- L2: 1.1 ----- L3: 1.2 ----- L4: 3.9 ----- L1-L4: 1.7 Bone mineral density : baseline Bone mineral density about the R hip (g/cm2): 1.107 Bone mineral density about the L hip (g/cm2): 1.004 T Score values are as follows: -----R Neck: 0.5 -----L Neck: -0.2 -----R Total: 0.6 -----L Total: 0.0 Bone mineral density : baseline IMPRESSION: Normal (Values between +1 and -1 indicate normal bone mass). Consider repeating this study in 5 year s or sooner if there is some new clinical indication. NOTE: T-SCORE=SD OF THE YOUNG ADULT MEAN.
== END | disposition home or self-care (01) ==
LOC: RADBDWWP 12:46
PROVIDERS: ATTEND Family Medicine
DX: M81.0 Age-related osteoporosis without current pathological fracture (principal)
CPT/HCPCS: 77080

== ENCOUNTER → 2019-07-31 | Outpatient (CLI) | payer OTHER ==
[2019-07-31 12:06] LABS: HCT 39.1 % (34.0-46.0); HGB 13.1 gm/dL (11.4-16.0); MCH 30.1 pg (25.0-35.0); MCHC 33.5 g/dL (31.0-37.0); MCV 89.9 fL (80.0-100.0); Mean Platelet Volume 7.6; Platelet Count 347 k/uL (150-450); RBC 4.35 m/uL (3.80-5.40); RDW 13.2 % (11.5-15.5); WBC 4.7 k/uL (3.8-10.6)
[2019-07-31 12:18] LABS: African American GFR (CKD) >90 (>60 ml/min/1.73 sqM); Anion Gap 8 mmol/L; Blood Urea Nitrogen 14 mg/dL (7-17); Calcium 9.4 mg/dL (8.4-10.2); Carbon Dioxide 25 mmol/L (22-30); Chloride 105 mmol/L (98-107); Glucose 92 mg/dL (74-99); Non-African American GFR(CKD) >90 (>60 ml/min/1.73 sqM); Potassium 4.6 mmol/L (3.5-5.1); Sodium 138 mmol/L (137-145)
== END | disposition home or self-care (01) ==
LOC: LABPAT 10:06
PROVIDERS: ATTEND Podiatrist Foot & Ankle Surgery
DX: Z01.812 Encounter for preprocedural laboratory examination (principal)
CPT/HCPCS: 36415; 80048; 85027

== ENCOUNTER → 2019-08-05 | Outpatient (CLI) | payer OTHER | END | disposition home or self-care (01) | LOC: LABWHC1 12:41 | PROVIDERS: ATTEND Podiatrist Foot & Ankle Surgery | DX: Z01.818 Encounter for other preprocedural examination (principal); Z11.59 Encounter for screening for other viral diseases ==

== ENCOUNTER → 2019-08-07 | Day surgery (SDC) | payer OTHER ==
[2019-08-05 15:45] VITALS: BMI 30.9
[~2019-08-07] MED LIST changes: +BUPIVACAINE (PF) 0.25% 30 ML VIAL SQ ONE; -CIPROFLOXACIN/DEXTROSE PMX 400 MG in DEXTROSE/WATER 1 200ML.BAG IVPB ONE; -GENTAMICIN 100 MG in SODIUM CHLORIDE 0.9% 100 ML IVPB ONE; -HEPARIN SODIUM,PORCINE 5,000 UNIT/ML 1 ML VIAL SQ STA; +HYDROmorphone (PF) 1 MG/ML ONE; +HYDROmorphone 0.5 MG/0.5 ML SYRINGE IVP PRN; +KETAMINE 10 MG/ML 20 ML VIAL ONE; -LIDOCAINE 1% 20 ML VIAL (10MG/ML) FOR IV START INTRADERMA PRN; +MIDAZOLAM 2 MG/2 ML VIAL IV PRN; +MIDAZOLAM 2 MG/2 ML VIAL ONE; +ONDANSETRON 4 MG/2 ML VIAL ONE; +PROPOFOL 10 MG/ML 20 ML VIAL IV ONE; +SCOPOLAMINE 1.5MG/72HR PATCH TRANSDERM ONE; +fentaNYL (PF) 50 MCG/ML 2 ML AMP ONE
[2019-08-07 12:25] VITALS: RESP 16; TEMP 97
--- NOTE | 2019-08-07 15:11 | P.OP ---
Date of Procedure: 08/07/19 Preoperative Diagnosis: Hammer digit deformity second toe right foot was subluxed second metatarsal phalangeal joint right foot Postoperative Diagnosis: Same Procedure(s) Performed: Arthrodesis second toe proximal interphalangeal joint and Josie osteotomy second metatarsal right foot Anesthesia: MAC (Supplemented with local anesthesia team cc of 0.5% plain Marcaine) Description of Procedure: On the date of surgery the patient was taken to the operating room placed on the operating table supine position where an IV was started and adequate IV anesthetic agents were utilized. Anesthesia was then further supplemented with approximately 14 mL of 0.25% plain Marcaine given in a Umana type block to the second ray of the patient's right foot. Patient's right foot and ankle were then prepped and draped in the usual aseptic manner. Line over heavy web roll padding an ankle tourniquet was placed above the malleoli of the patient's right ankle. Utilizing an Esmarch bandage the patient's right foot and ankle were elevated and exsanguinated of blood and after approximately 1 minutes. A time the ankle tourniquet to the patient's right ankle was inflated to approximately 250 mmHg At this time attention was directed to the dorsal aspect of the distal one half of the second Ray where an approximately 6 cm dorsal linear incision was made the incision was deepened via sharp dissection down through the level of the subcutaneous tissue layers all neurovascular structures encountered were identified isolated and were retracted and any bleeding vessels were clamped and electrocauterized. Dissection was then carried deep down to level of the proximal interphalangeal joint of the second toe where the extensor digitorum longus tendon was severed at the level of the proximal interphalangeal joint and underscored and retracted from the underlying bone. Utilizing oscillating bone saw the end of the proximal phalanx was resected it a 90 angle to the shaft and removed in total from the surgical site. Throughout the surgical procedure copious amounts of sterile saline solution was used to irrigate the surgical site. The oscillating bone saw was then used to resect the base of the proximal phalanx. Lysing 0.045 K wire K wire was drilled distally through the middle and distal phalanx and then retrograded back into the proximal phalanx holding the digit in a rectus position. At this point in time attention was directed to the proximal most aspect of the incision where dissection was carried deep down to the level PERIOSTEAL STRUCTURES OVERLYING THE SECOND METATARSAL PHALANGEAL JOINT THESE WERE INCISED IN LINE WITH THE ORIGINAL SKIN INCISION JUST MEDIAL TO THE EXTENSOR DIGITORUM LONGUS TENDON AND UNDERSCORED AND RETRACTED FROM THE UNDERLYING BONE THIS EXPOSED OF THE SECOND METATARSAL HEAD WAS THEN OSTEOTOMIZED from the distal dorsal aspect of the proximal plantar aspect an oblique manner the metatarsal head upon completion of this osteotomy the capital fragment was seen to re-'s see proximally and the oscillating edge of the second metatarsal was resected flush with the bone 0.045 K wire was then drilled through the distal dorsal aspect of the metatarsal down into the head of the second metatarsal. The second metatarsal phalangeal joint was seen to locate into a normal anatomical position. Some periosteal structures were coaptated and maintained utilizing 3-0 Vicryl s imple interrupted suture as well as cutaneous tissues the skin was then closed utilizing 4-0 nylon simple interrupted suture surgical site was covered with Adaptic and dressed with Kerlix fluffs inch conform and 4 inch Coban ankle tourniquet to the patient's right ankle was then deflated and adequate hemostatic return was seen in all digits the patient's right foot patient tolerated the surgery and anesthesia well was taken recovery room in good postoperative condition mika Villavicencio DPM and a dictation thank you
[2019-08-07 15:40] VITALS: BP 115/68; PULSE 68
== END ==
LOC: OR 11:15
PROVIDERS: ATTEND Podiatrist Foot & Ankle Surgery
DX: M20.41 Other hammer toe(s) (acquired), right foot (principal); S93.144A Subluxation of metatarsophalangeal joint of right lesser toe(s), initial encounter; J45.909 Unspecified asthma, uncomplicated; M19.90 Unspecified osteoarthritis, unspecified site; F32.9 Major depressive disorder, single episode, unspecified; K21.9 Gastro-esophageal reflux disease without esophagitis; Z87.442 Personal history of urinary calculi; Z88.2 Allergy status to sulfonamides; Z88.8 Allergy status to other drugs, medicaments and biological substances; Z79.899 Other long term (current) drug therapy; Z98.890 Other specified postprocedural states; X58.XXXA Exposure to other specified factors, initial encounter
CPT/HCPCS: 81025; 28285; 28308; C1713; J2250; J1100; J0690; J2405; J3010; J1170; J2704

== ENCOUNTER → 2019-12-25 | Outpatient (CLI) | payer OTHER ==
--- NOTE | 2019-12-25 15:49 | XR ---
Abdomen HISTORY: Low back pain Frontal view the abdomen submitted on 2 images And correlation to prior exam 01/04/2019 And bases are clear. There are air-fluid levels without bowel distention. No pneumoperitoneum. Slight spinal curvature centered at the lower lumbar spine. Probable vascular calcifications within the pel vis. IMPRESSION: Correlate for ileus or enteritis.
== END | disposition home or self-care (01) ==
LOC: RADXRMAIN 13:16
PROVIDERS: ATTEND Family Medicine
DX: N20.0 Calculus of kidney (principal)
CPT/HCPCS: 74018

== ENCOUNTER → 2020-02-28 | Outpatient (CLI) | payer OTHER ==
--- NOTE | 2020-03-03 10:38 | MM ---
Reason for exam: screening (asymptomatic). Last mammogram was performed 1 year and 10 months ago. History: Family history of premenopausal breast cancer in mother at age 30 and breast cancer in maternal grandmother at age 60. Took hormonal contraceptives for 23 years 6 months beginning at age 18. Physical Findings: A clinical breast exam by your physician is recommended on an annual basis and results should be correlated with mammographic findings. MG 3D Screening Mammo W/Cad Bilateral CC and MLO view(s) were taken. Prior study comparison: May 07, 2018, bilateral MG 3d screening mammo w/cad. April 13, 2017, bilateral MG 3d diag mammo w/cad MARCELO. March 14, 2016, bilateral MG 3d screening mammo w/cad. The breast tissue is heterogeneously dense. This may lower the sensitivity of mammography. There is chronic nodularity bilaterally. No significant changes when compared with prior studies. ASSESSMENT: Benign, BI-RAD 2 RECOMMENDATION: Routine screening mammogram of both breasts in 1 year.
== END | disposition home or self-care (01) ==
LOC: RADMAMWWP 16:24
PROVIDERS: ATTEND Obstetrics & Gynecology
DX: Z12.31 Encounter for screening mammogram for malignant neoplasm of breast (principal); Z80.3 Family history of malignant neoplasm of breast
CPT/HCPCS: 77063; 77067

== ENCOUNTER 2021-01-08 06:06 | Day surgery (SDC) | payer OTHER ==
[2021-01-04 10:25] VITALS: BMI 30.9
[~2021-01-08 06:06] MED LIST changes: -BUPIVACAINE (PF) 0.25% 30 ML VIAL SQ ONE; -DEXAMETHASONE SOD PHOSPHATE 10 MG/ML 1 ML VIAL IV ONE; -HYDROmorphone (PF) 1 MG/ML ONE; -HYDROmorphone 0.5 MG/0.5 ML SYRINGE IVP PRN; -KETAMINE 10 MG/ML 20 ML VIAL ONE; +LIDOCAINE 1% (10MG/ML) FOR IV START INTRADERMA PRN; -MIDAZOLAM 2 MG/2 ML VIAL IV PRN; -MIDAZOLAM 2 MG/2 ML VIAL ONE; -ONDANSETRON 4 MG/2 ML VIAL IVP ONE; -ONDANSETRON 4 MG/2 ML VIAL ONE; -PROPOFOL 10 MG/ML 20 ML VIAL IV ONE; +Pre Op ABX Message 1 EACH MISC MISCELLANE ONE; -SCOPOLAMINE 1.5MG/72HR PATCH TRANSDERM ONE; -fentaNYL (PF) 50 MCG/ML 2 ML AMP ONE
[2021-01-08] MEDS ORDERED: ONDANSETRON 4 MG/2 ML VIAL ONE (06:51)
[2021-01-08] MEDS ORDERED: LACTATED RINGERS 1,000 ML IV ONE ×2 (06:56→09:32)
[2021-01-08] MEDS ORDERED: ONDANSETRON 4 MG/2 ML VIAL IVP ONE (06:58)
[2021-01-08] MEDS ORDERED: DEXAMETHASONE SOD PHOSPHATE 4 MG/ML 1 ML VIAL IVP ONE (06:58)
[2021-01-08] MEDS ORDERED: SCOPOLAMINE 1.5MG/72HR PATCH TRANSDERM ONE (06:58)
[2021-01-08] MEDS ORDERED: MIDAZOLAM 2 MG/2 ML VIAL IVP ONE (07:21)
[2021-01-08] MEDS ORDERED: .fentaNYL (PF) 50 MCG/ML AMP IVP ONE (07:22)
[2021-01-08] MEDS ORDERED: PROPOFOL 10 MG/ML 20 ML VIAL IV ONE (07:57)
[2021-01-08] MEDS ORDERED: .fentaNYL (PF) 50 MCG/ML AMP ONE (07:57)
[2021-01-08] MEDS ORDERED: LIDOCAINE 1% INJ 10MG/ML (20 ML MDV) ONE (07:57)
[2021-01-08] MEDS ORDERED: ROPIVACAINE 5 MG/ML 30 ML VIAL ONE (07:57)
[2021-01-08] MEDS ORDERED: ceFAZolin 1,000 MG in SODIUM CHLORIDE 0.9% 1,000 ML IRRIGATION ONE (08:23)
--- NOTE | 2021-01-08 10:02 | P.ANPRN ---
Procedure Note - Anesthesia - Nerve Block Performed Right Popliteal Single Time Out Performed: Yes (720) Date of Procedure: 01/08/21 Procedure Start Time: Procedure Stop Time: Location of Patient: PreOp Indication: Acute Post-Operative Pain, Requested by Surgeon Specifically requested for management of pain by DrMagan: Jamar Zuniga Sedation Type: Sedate with meaningful contact maintained Preparation: Sterile Prep Position: Supine Catheter: None Needle Types: Pajunk Needle Gauge: 21 Ultrasound used to visualize needle placement: Yes Ultrasound used to observe medication spread: Yes Injectate: 0.5% Ropivacaine (see comment for volume) (15cc + 5cc nacl pf) Blood Aspirated: No Pain Paresthesia on Injection Noted: No Resistance on Injection: Normal Image Stored and Saved: Yes Events: Uneventful and Well Tolerated Right Adductor Canal Single Time Out Performed: Yes (720) Date of Procedure: 01/08/21 Procedure Start Time: Procedure Stop Time: Location of Patient: PreOp Indication: Acute Post-Operative Pain, Requested by Surgeon Specifically requested for management of pain by DrMagan: Jamar Zuniga Sedation Type: Sedate with meaningful contact maintained Preparation: Sterile Prep Position: Supine Catheter: None Needle Types: Pajunk Needle Gauge: 21 Ultrasound used to visualize needle placement: Yes Ultrasound used to observe medication spread: Yes Injectate: 0.5% Ropivacaine (see comment for volume) (15cc + 5cc nacl pf) Blood Aspirated: No Pain Paresthesia on Injection Noted: No Resistance on Injection: Normal Image Stored and Saved: Yes Events: Uneventful and Well Tolerated
--- NOTE | 2021-01-08 10:03 | P.ANPRN ---
Procedure Note - Anesthesia - Nerve Block Performed Right Popliteal Single Time Out Performed: Yes (941) Date of Procedure: 01/08/21 Procedure Start Time: 09:42 Procedure Stop Time: 09:47 Location of Patient: PreOp Indication: Acute Post-Operative Pain, Requested by Surgeon Specifically requested for management of pain by DrMagan: Jamar Zuniga Sedation Type: Sedate with meaningful contact maintained Preparation: Sterile Prep Position: Supine Catheter: None Needle Types: Pajunk Needle Gauge: 21 Ultrasound used to visualize needle placement: Yes Ultrasound used to observe medication spread: Yes Injectate: 0.5% Ropivacaine (see comment for volume) (15cc + 5cc nacl pf) Blood Aspirated: No Pain Paresthesia on Injection Noted: No Resistance on Injection: Normal Image Stored and Saved: Yes Events: Uneventful and Well Tolerated
[2021-01-08 10:05] VITALS: TEMP 96.8
[2021-01-08] MEDS ORDERED: HYDROmorphone 0.5 MG/0.5 ML SYRINGE IVP ONE ×2 (10:11→10:19)
--- NOTE | 2021-01-08 10:14 | P.OP ---
Date of Procedure: 01/08/21 Preoperative Diagnosis: 1. Hallux valgus right foot 2. Subluxation second metatarsal phalangeal joint right foot Postoperative Diagnosis: 1. Same 2. Same Procedure(s) Performed: 1. Modified Lapidus bunionectomy right foot 2. Second metatarsal osteotomy right foot Implants: Lapiplasty plates and screws 2.0 cortical screw Anesthesia: LORAA Surgeon: Jamar Zuniga Estimated Blood Loss (ml): 3 Pathology: none sent Condition: stable Disposition: PACU Indications for Procedure: 1. Painful bunion that reoccurred after previous surgery right foot 2. Painful metatarsalgia secondary to dorsal subluxation of the second metatarsal phalangeal joint Description of Procedure: Prior to the patient being brought to the operating room anesthesia administered a nerve block on the right lower extremity utilizing ultrasonic guidance and having the patient under mild sedation. Then the patient was brought into the operating room and placed on the table supine position. Timeout was taken to confirm correct patient identifiers, correct procedure, and correct site of surgery. When all staff in the room were in agreement with the timeout, the patient was induced and placed under general anesthesia. A well-padded tourniquet was placed on the right ankle and then the foot was prepped and draped in the usual manner. The foot was exsanguinated with an Esmarch bandage and the tourniquet inflated to 250 mmHg. Attention was first directed over the medial aspect of the first metatarsal phalangeal joint, where a linear incision was made between the neurovascular structures. It was deepened down to the subcutaneous tissue careful to identify, avoid, and retract any neurovascular structures and cauterize any bleeding vessels. Dissection was continued down to the first metatarsal phalangeal joint capsule. 2 semi-elliptical converging incisions are made along the medial aspect of the first metatarsal phalangeal joint and then the interposing piece of capsule was removed. The capsule was reflected from its osseous attachments on the medial plantar aspects of the first metatarsal head. The sesamoid apparatus was distracted plantarly and then the lateral sesamoid collateral ligament was transected and a lateral capsul otomy performed. Attention was directed over the dorsal aspect of the foot where a 6 cm incision was made centered over the tarsometatarsal joint medial to the extensor hallucis longus tendon. The incision was deepened down to the saphenous tissue careful to identify, avoid, and retract any neurovascular structures and cauterize any bleeding vessels. Dissection was then continued down to the periosteum and capsule and the same area. An incision was made medial to the extensor hallucis longus tendon to these tissues. Subperiosteal dissection was performed to expose the first tarsometatarsal joint. An osteotome was inserted into the joint to free the soft tissue attachments. A wire was placed through the medial aspect of the base of the first metatarsal to act as a joystick for frontal plane correction of the deformity. A fulcrum/joint seeker was then placed into the first tarsometatarsal joint. A Small stab incision was made on the lateral side of second metatarsal and bluntly dissected along the second metatarsal. The intermetatarsal angle reduction clamp was then placed over the second metatarsal and then medially on the flare of the base of the first metatarsal. While simultaneously holding the frontal plane correction and position the reduction clamp was advanced to close the intermetatarsal angle. Fluoroscopic imaging was used to check the amount of correction. Once the frontal plane rotation as well as the transverse plane to 40 were fully corrected a guidepin was then placed through the reduction clamp to lock it in place. The cut guide was placed over the joint seeker and held in place with pins. Fluoroscopy was used to check the alignment to make sure there was enough bone resection. Once adequate a third pin was placed through the cut guide to lock it in place. A sagittal saw was then used to resect the articular surface of the base of first metatarsal and distal medial cuneiform. The locking pin for the cut guide was removed and then the cut guide was removed. Joint seeker was also removed at this time. The distraction device was placed over the pins and the joint opened to allow access for the cut portions of bone. The cut portions of bone were removed. And then the wound was explored for any remaining pieces of bone. Once fully clean that wound is irrigated thoroughly with antibiotic saline. Then a 2 mm drill bit was used to aggressively fenestrate the conjoining surfaces of the arthrodesis site. The pin through the angle reduction clamp was removed and the fulcrum reinserted at the lateral side of the base of the first metatarsal. Then the distractor was reversed and then was used to compressed the arthrodesis site while holding the great toe dorsiflexed. The compression was done until the arthrodesis site was fully compressed. Once fully compressed fluoroscopy was used to make sure that the correction was maintained at that there was indeed adequate bony contact at the arthrodesis site. Lateral view also show that there was no plantar angulation. Once that was satisfactory of threaded olive wire was placed from dorsal proximal to distal plantar for point of fixation. Then the medial plate was positioned over the arthrodesis site and under direct fluoroscopic visualization was adjusted until the placement was ideal then temporarily fixated. The 2 internal screws were placed first. Then the temporary fixation was removed and the most distal and proximal screws inserted. Fluoroscopic imaging showed that the plate was properly positioned. Then the distractor and guidepins were removed and then the dorsal plate was positioned under fluoroscopy and adjusted into ideal alignment and then temporarily fixated. The 200 screws were then placed first and then the temporary fixation removed and the most distal and proximal screws inserted through the plate. The olive wire was then removed and fluoroscopic imaging was used to check the position of the plates and the overall correction of the deformity. Intermetatarsal angle was corrected, the sesamoids were properly aligned and there was good compression maintain at the arthrodesis site. All wounds were then thoroughly irrigated with antibiotic saline. The first metatarsal phalangeal joint capsule was closed with 0 Vicryl while holding the great toe to correct position. The deep tissue on the dorsal incision was also closed with 0 Vicryl. All incisions were closed with 4-0 Monocryl subcutaneously. The medial dorsal incisions were closed with 4-0 Stratafix in a running subcuticular manner. Then attention was directed over the second metatarsal phalangeal joint where a lazy S incision was made over the joint. The incision was deepened down to the subcutaneous tissue careful to identify, avoid, and retract any neurovascular structures and cauterize any bleeding vessels. Dissection was continued down to the second metatarsal phalangeal joint and on the medial lateral aspects. A capsular incision was made medial to the extensor digitorum longus tendon. Subperiosteal dissection was performed of the capsular tissue to expose second metatarsal head. A sagittal saw was used to perform the Josie osteotomy. The second metatarsal head was then reduced proximally to shorten the metatarsal and allow the second metatarsal phalangeal joint to relocate. Position was confirmed under fluoroscopy and then temporarily fixated wiThe deep tissue on the dorsal incision was also closed with 0 Vicryl. All incisions were closed with 4-0 Monocryl subcutaneously. The medial dorsal incisions were closed with 4-0 Stratafix in a running subcuticular manner. Fluoroscopic imaging confirmed the maintained position of the second metatarsal and proper placement of the screw. Dermal glue was applied to all incisions. Steri-Strips are placed across all incisions. An Arthrex jumpstart dressing was placed over all incisions. Then a bulky dry dressing applied to the left foot. Tourniquet was released and capillary refill return to all digits on the left foot. Then the patient was placed in a well-padded, well molded plaster posterior mold/sugar tong splint. Ankle was held in neutral position until the splint was dried. Then anesthesia was reversed and the patient was taken recovery with vital signs stable.
[2021-01-08 10:50] VITALS: RESP 16
[2021-01-08] MEDS ORDERED: HYDROcodone/APAP 5-325MG 1 EACH TAB ONE (10:52)
[2021-01-08] MEDS ORDERED: HYDROcodone/APAP 5-325MG 1 EACH TAB PO ONE (10:56)
[2021-01-08 11:10] VITALS: BP 127/60; PULSE 74
== END 2021-01-08 11:34 | disposition home or self-care (01) ==
LOC: OR 06:06
PROVIDERS: ATTEND Podiatrist
DX: M20.11 Hallux valgus (acquired), right foot (principal); S93.331A Other subluxation of right foot, initial encounter; X58.XXXA Exposure to other specified factors, initial encounter; J45.909 Unspecified asthma, uncomplicated; K21.9 Gastro-esophageal reflux disease without esophagitis; F32.A Depression, unspecified; H40.9 Unspecified glaucoma; R63.5 Abnormal weight gain; Z96.653 Presence of artificial knee joint, bilateral; Z98.891 History of uterine scar from previous surgery; Z98.890 Other specified postprocedural states; Z87.442 Personal history of urinary calculi; Z83.3 Family history of diabetes mellitus; Z82.49 Family history of ischemic heart disease and other diseases of the circulatory system; Z79.899 Other long term (current) drug therapy; Z88.2 Allergy status to sulfonamides; Z88.8 Allergy status to other drugs, medicaments and biological substances
CPT/HCPCS: 28297; 64447; 64445; 81025; 76942; C1713; J2250; J1100; J0690 ×2; J2405; J2001; J3010; J2795; J2704; J1170; 64450

== ENCOUNTER → 2021-03-31 | Outpatient (CLI) | payer OTHER ==
--- NOTE | 2021-04-02 12:40 | MM ---
Reason for exam: screening (asymptomatic). Last mammogram was performed 1 year and 1 month ago. History: Family history of premenopausal breast cancer in mother at age 30 and breast cancer in maternal grandmother at age 60. Took hormonal contraceptives for 23 years 6 months beginning at age 18. Physical Findings: A clinical breast exam by your physician is recommended on an annual basis and results should be correlated with mammographic findings. MG 3D Screening Mammo W/Cad Bilateral CC and MLO view(s) were taken. Prior study comparison: February 28, 2020, bilateral MG 3d screening mammo w/cad. May 07, 2018, bilateral MG 3d screening mammo w/cad. The breast tissue is heterogeneously dense. This may lower the sensitivity of mammography. There is chronic nodularity in the right breast. No significant changes when compared with prior studies. ASSESSMENT: Benign, BI-RAD 2 RECOMMENDATION: Routine screening mammogram of both breasts in 1 year.
== END | disposition home or self-care (01) ==
LOC: RADMAMWWP 16:16
PROVIDERS: ATTEND Obstetrics & Gynecology
DX: Z08 Encounter for follow-up examination after completed treatment for malignant neoplasm (principal); Z80.3 Family history of malignant neoplasm of breast
CPT/HCPCS: 77063; 77067

== ENCOUNTER → 2021-09-07 | Outpatient (CLI) | payer OTHER ==
--- NOTE | 2021-09-07 12:27 | XR ---
KUB HISTORY: Renal colic From KUB is submitted and correlated to prior exam 11.2 2019, abdomen 12/25/2019 Overlying bowel gas may obscure underlying detail. Multiple calcifications are present within the pel vis. Retained fecal debris may be indicative of underlying fecal stasis. No evident bowel obstruction or pneumoperitoneum. Overlying artifacts noted. Degenerative disc changes present in the lower lumba r spine. IMPRESSION: Indeterminate pelvic calcifications. Correlate for constipation. Degenerative disc diseas e.
== END | disposition home or self-care (01) ==
LOC: RADXRMAIN 11:59
PROVIDERS: ATTEND Urology
DX: N23 Unspecified renal colic (principal)
CPT/HCPCS: 74018

== ENCOUNTER → 2021-10-13 | Outpatient (CLI) | payer OTHER ==
--- NOTE | 2021-10-13 11:57 | XR ---
EXAMINATION TYPE: XR KUB DATE OF EXAM: 10/13/2021 COMPARISON: 09/08/2019 HISTORY: Pain TECHNIQUE: One view abdominal series FINDINGS: The osseous structures are intact. The bowel gas pattern is nonspecific. Spina bifida occulta coccyx . Degenerative changes lower lumbar spine. Calcification, nonspecific likely vascular. Osteitis pubis is noted. Arthropathy of the hips bilaterally contain fecal debris throughout the colon. IMPRESSION: 1. Nonspecific abdomen. Calcifications in the pelvis are nonspecific and likely vascular given their stability from prior exams.
== END | disposition home or self-care (01) ==
LOC: RADXRMAIN 11:31
PROVIDERS: ATTEND Urology
DX: N20.1 Calculus of ureter (principal)
CPT/HCPCS: 74018

== ENCOUNTER → 2021-10-13 | Outpatient (CLI) | payer OTHER ==
[2021-10-13 20:02] LABS: African American GFR (CKD) 117.7 (60.0-200.0); Albumin 4.4 g/dL (3.8-4.9); Albumin/Globulin Ratio 2.11 (1.60-3.17); Anion Gap 8.9 mmol/L (10.00-18.00); BUN/Creat Ratio 26.07 Ratio (12.00-20.00); Blood Urea Nitrogen 15.8 mg/dL (9.0-27.0); Calcium 9.9 mg/dL (8.7-10.3); Carbon Dioxide 27.8 mmol/L (20.0-27.5); Globulin 2.1 g/dL (1.6-3.3); Non-African American GFR(CKD) 101.6 (60.0-200.0); Potassium 5.1 mmol/L (3.5-5.5); Total Bilirubin 0.5 mg/dL (0.30-1.20); Total Protein 6.5 g/dL (6.2-8.2)
[2021-10-13 21:46] LABS: Basophils # (A) 0.03 X 10*3/uL (0.00-0.10); Basophils % (A) 0.7 %; Eosinophils # (A) 0.07 X 10*3/uL (0.04-0.35); Eosinophils % (A) 1.6 %; HCT 39.7 % (37.2-46.3); HGB 12.9 g/dL (12.0-15.0); Immature Grans, Automated 0.2 %; Lymphocytes # (A) 1.52 X 10*3/uL (0.90-5.00); Lymphocytes % (A) 34.1 %; MCH 29.2 pg (27.0-32.0); MCHC 32.5 g/dL (32.0-37.0); MCV 89.8 fL (80.0-97.0); Mean Platelet Volume 9.6 fL (9.5-12.2); Monocytes # (A) 0.33 X 10*3/uL (0.20-1.00); Monocytes % (A) 7.4 %; NRBC Per 100 WBC 0 /100 WBCS (0.0-0.0); Platelet Count 367 X 10*3/uL (140-440); RBC 4.42 X 10*6/uL (4.10-5.20); RDW 12.8 % (11.5-14.5); WBC 4.46 X 10*3/uL (4.50-10.00)
== END | disposition home or self-care (01) ==
LOC: LABPAT 14:14
PROVIDERS: ATTEND Urology
DX: Z01.812 Encounter for preprocedural laboratory examination (principal); N20.1 Calculus of ureter
CPT/HCPCS: 80053; 85025

== ENCOUNTER → 2021-10-15 | Day surgery (SDC) | payer OTHER ==
[~2021-10-15] MED LIST changes: +.MORPHINE SULFATE (INJ) 10 MG/ML SYRINGE ONE; +DEXAMETHASONE SOD PHOSPHATE 4 MG/ML 1 ML VIAL IV ONE; +HYDROmorphone 0.5 MG/0.5 ML SYRINGE IVP ONE; +HYDROmorphone 0.5 MG/0.5 ML SYRINGE IVP PRN; +KETOROLAC 15 MG/ML 1 ML VIAL IVP ONE; -LIDOCAINE 1% (10MG/ML) FOR IV START INTRADERMA PRN; +LIDOCAINE 2% INJ 20 MG/ML (2 ML VIAL) ONE; +MIDAZOLAM 2 MG/2 ML VIAL IV PRN; +MIDAZOLAM 2 MG/2 ML VIAL ONE; +ONDANSETRON 4 MG/2 ML VIAL IVP ONE; +PROPOFOL 10 MG/ML 20 ML VIAL IV ONE; -Pre Op ABX Message 1 EACH MISC MISCELLANE ONE; +SCOPOLAMINE 1 MG/72 HR PATCH TRANSDERM ONE
--- NOTE | 2021-10-15 13:18 | P.HPIHPCON ---
History of Present Illness Chief Complaint: right ureteral stone This is 56 yo female with hx of 5mm right sided distal ureteral stone. She has f marlon medical expulsive therapy. Option of right-sided ureteroscopy with holmium laser was discussed with him. Discussed with him the risk which includes but not limited to bleeding, infection, injury to ureter. Discussed also risks from anesthesia. She undestood all the risk and agreed to proceed with right-sided ureteroscopy, laser lithotripsy, stone basketing and possible stent insertion Consent for Procedure: I have explained the operation/procedure to the patient, including the risks, benefits, side effects, alternative therapies (including not receiving the proposed treatment or service), the likelihood of the patient achieving his/her goals, and potential recuperation problems for the procedure/sedation/analgesia, as well as any blood products, if indicated. I also explained to the patient the risks, benefits and side effects of the alternatives, as well as the risks related to not receiving the proposed procedure, care, treatment, or services. 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 Past Anesthesia/Blood Transfusion Reactions: Motion Sickness, Postoperative Nausea & Vomiting (PONV) Additional Past Anesthesia/Blood Transfusion Reaction / Comment(s): no hx blood transfusion,daughter takes a long time to come out of anesthesia Smoking Status: Never smoker - Past Family History Brother(s) Additional Family Medical History / Comment(s): Patient has 1 brother with asthma and ALLERGIES. Sister(s) Additional Family Medical History / Comment(s): Patient has one sister with bipolar and major depression. Daughter(s) Additional Family Medical History / Comment(s): Patient has one son that has asthma as a child only but also developed MRSA pneumonia. Patient has one daughter with depression, anxiety and bipolar disorder,Lyme disease,[place] Father Family Medical History: Cancer Additional Family Medical History / Comment(s): luekemia Mother Family Medical History: Cancer, Deep Vein Thrombosis (DVT), Pulmonary Embolus Additional Family Medical History / Comment(s): lymphoma , esophageal cancer Medications and Allergies Home Medications Medication Instructions Recorded Confirmed Type Cetirizine HCl [Zyrtec] 10 mg PO HS 11/04/14 10/14/21 History Sertraline [Zoloft] 100 mg PO HS 11/04/14 10/14/21 History Multivitamins, Thera [Multivitamin 1 tab PO HS 01/01/15 10/14/21 History (formulary)] Diclofenac Sodium [Voltaren] 75 mg PO BID PRN 11/26/18 10/14/21 History Montelukast [Singulair] 10 mg PO HS 11/26/18 10/14/21 History Ergocalciferol [Vitamin D2] 50,000 unit PO Q7D 08/05/19 10/14/21 History Fluticasone Propionate [Flonase 1 spray EA NOSTRIL DAILY PRN 01/04/21 10/14/21 History Allergy Relief] Zinc 50 mg PO DAILY 01/04/21 10/14/21 History Ketorolac [Toradol] 10 mg PO Q6HR PRN 10/14/21 10/14/21 History metFORMIN HCL 1,000 mg PO HS 10/14/21 10/14/21 History Allergies Allergy/AdvReac Type Severity Reaction Status Date / Time sulfamethoxazole Allergy Swelling Verified 10/14/21 09:21 [From Bactrim] of tongue and throat trimethoprim [From Bactrim] Allergy Swelling Verified 10/14/21 09:21 of tongue and throat migraine medication Allergy SWELLING Uncoded 10/14/21 10:02 OF TONGUE AND THROAT Surgical - Exam - General no distress, moderate pain - Eyes normal ocular movement, no pale - ENT normal nares, normal mucosa - Respiratory normal expansion, normal respiratory effort - Abdomen Abdomen: soft, non tender Assessment and Plan Assessment: OR for right-sided ureteroscopy, homium laser lithotripsy, stone basketing and possible stent insertion
--- NOTE | 2021-10-15 14:18 | XR ---
EXAMINATION TYPE: XR KUB DATE OF EXAM: 10/15/2021 COMPARISON: 10/13/2021 HISTORY: Preop TECHNIQUE: One view abdominal series FINDINGS: The osseous structures are intact. The bowel gas pattern is nonspecific. Spina bifida occulta coccyx. Degenerative changes lower lumbar spine. Pelvic sub-5 mm calcifications nonspecific. Osteitis pubis is noted. Arthropathy of the hips bilaterally contain fecal debris throughout the colon. IMPRESSION: 1. Stable nonspecific pelvic calcifications unchanged from prior exam. Cannot exclude a distal ureter al calcification.
[2021-10-15 14:40] LABS: Glucose,Whole Blood 84 mg/dL (70-110)
--- NOTE | 2021-10-15 16:32 | P.OP ---
Date of Procedure: 10/15/21 Preoperative Diagnosis: Right ureteral stone Postoperative Diagnosis: Same Procedure(s) Performed: Cystoscopy, right ureteroscopy Implants: None Anesthesia: LORAA Surgeon: Kyle Gross Estimated Blood Loss (ml): 5 Pathology: none sent Condition: stable Disposition: PACU Indications for Procedure: This is 56 yo female with hx of 5mm right sided distal ureteral stone. She has failed medical expulsive therapy. Option of right-sided ureteroscopy with ho lmium laser was discussed with him. Discussed with him the risk which includes but not limited to bleeding, infection, injury to ureter. Discussed also risks from anesthesia. She undestood all the risk and agreed to proceed with right- sided ureteroscopy, laser lithotripsy, stone basketing and possible stent insertion Operative Findings: No stone was visualized, the right ureter was dilated consistent with a recently passed stone Description of Procedure: Patient brought to operating room, general anesthesia was induced. She was prepped and draped in sterile fashion and placed in dorsal lithotomy position. Cystoscopy fitted with 21-Palestinian sheath was inserted per urethra, cystoscopy was performed which showed no abnormality within the bladder. Attention was then carried to the right ureteral orifice, a semirigid ureteroscope was advanced up the right ureteral orifice. The scope was advanced all the way up to the UPJ which showed no evidence of stone, but of note the ureter was dilated. Pullback ureteroscopy was performed which showed no injury to the ureter or any ureteral stones. As the ureteroscope was withdrawn a sensor wire was advanced through. Next I attempted to pass the flexible ureteroscope over the wire but resistance was met at the UVJ. At this time a 1113 Palestinian access sheath was passed over the wire and into the distal ureter. The access sheath passed easily. Next a flexible ureteroscope was inserted and advanced through the access sheath and into the kidney. Complete renoscopy was performed which showed no evidence of any kidney stones. Pullback ureteroscopy was performed which showed no injury to the ureter or any ureteral stones, there was no ureteral edema thus a stent was not placed. The bladder was emptied at the end of the case. Patient tolerated the procedure well and was taken to recovery in stable condition
[2021-10-15 16:46] VITALS: TEMP 97.6
[2021-10-15 17:52] VITALS: RESP 18
[2021-10-15 18:57] VITALS: BP 124/62; PULSE 66
--- NOTE | 2021-10-16 07:38 | FL ---
Intraoperative/procedural fluoroscopic services were provided for right ureteroscopy. Total fluorosco py time is 36 seconds with a total of 1 submitted image to PACS. Please see the operative note for fu rther details.
== END | disposition home or self-care (01) ==
LOC: OR 13:51
PROVIDERS: ATTEND Urology
DX: N20.1 Calculus of ureter (principal); J45.909 Unspecified asthma, uncomplicated; E11.9 Type 2 diabetes mellitus without complications; K21.9 Gastro-esophageal reflux disease without esophagitis; M19.90 Unspecified osteoarthritis, unspecified site; G43.109 Migraine with aura, not intractable, without status migrainosus; Z87.442 Personal history of urinary calculi; Z87.39 Personal history of other diseases of the musculoskeletal system and connective tissue; Z47.1 Aftercare following joint replacement surgery; Z96.653 Presence of artificial knee joint, bilateral; Z98.891 History of uterine scar from previous surgery; Z98.890 Other specified postprocedural states; Z82.5 Family history of asthma and other chronic lower respiratory diseases; Z81.8 Family history of other mental and behavioral disorders; Z80.0 Family history of malignant neoplasm of digestive organs; Z84.89 Family history of other specified conditions; Z88.2 Allergy status to sulfonamides; Z87.891 Personal history of nicotine dependence
CPT/HCPCS: 52351; 81025; 74420; 74018; C1769; J2250; J1100; J2270; J0690; J2405; J1885; J2704; J1170; J2001

== ENCOUNTER → 2022-05-04 | Outpatient (CLI) | payer OTHER ==
--- NOTE | 2022-05-05 19:11 | MM ---
Reason for Exam: Screening (asymptomatic). Last mammogram was performed 1 year(s) and 1 month(s) ago. Patient History: Menarche at age 13. First Full-Term at age 30. Late child-bearing (after 30). Postmenopausal. Patient has history of breast feeding. Hormonal Contraceptives for 23 years, 6 months, from age 18 until age 41. Maternal grandmother had breast cancer, age 60. Mother had breast cancer, age 30. Risk Values: Hemalatha 5 year model risk: 2.5%. NCI Lifetime model risk: 15.6%. Prior Study Comparison: 05/07/2018 Bilateral Screening Mammogram, [facility]. 02/28/2020 Bilateral Screening Mammogram, [facility]. 03/31/2021 Bilateral Screening Mammogram, [facility]. Tissue Density: There are scattered fibroglandular densities. Findings: Analyzed By CAD. Chronic nodularity subareolar right MLO view. Area of asymmetric density lateral right CC view at middle depth appears more defined and incompletely disperses on 3-D images. Further evaluation is recommended. Otherwise, no significant change. Overall Assessment: Incomplete: need additional imaging evaluation, BI-RAD 0 Management: Special View Mammogram of the right breast. Including spot 3-D CC, 3-D CC rolled medial, 3-D XCCL, and 3-D ML views. Targeted right breast ultrasound if any persisting abnormality. [facility] will attempt to contact patient to return for supplemental views and ultrasound if indicated. Electronically signed and approved by: Stuart Correia M.D. Radiologist
== END | disposition home or self-care (01) ==
LOC: RADMAMWWP 15:15
PROVIDERS: ATTEND Family Medicine
DX: Z12.31 Encounter for screening mammogram for malignant neoplasm of breast (principal); Z80.3 Family history of malignant neoplasm of breast; Z78.0 Asymptomatic menopausal state
CPT/HCPCS: 77063; 77067

== ENCOUNTER → 2022-05-04 | Outpatient (CLI) | payer OTHER ==
--- NOTE | 2022-05-05 09:43 | XR ---
EXAMINATION TYPE: XR KUB DATE OF EXAM: 05/04/2022 4:30 PM COMPARISON: 10/15/2021 CLINICAL HISTORY: Kidney stones TECHNIQUE: KUB images of the abdomen are obtained. COMPARISON: None. FINDINGS: There is a significant amount of stool throughout the colon, particularly on the right side . There is no visceromegaly, pneumoperitoneum, or abnormal calcification appreciated. The lung bases are not visualized. Degenerative changes of the lower lumbar spine. Stable pelvic calcifications. IMPRESSION: 1. Significant stool throughout the colon. 2. Stable pelvic calcifications, presumably vascular.
== END | disposition home or self-care (01) ==
LOC: RADXRMAIN 15:59
PROVIDERS: ATTEND Urology
DX: N20.0 Calculus of kidney (principal); R19.5 Other fecal abnormalities
CPT/HCPCS: 74018

== ENCOUNTER → 2022-05-11 | Outpatient (CLI) | payer OTHER ==
--- NOTE | 2022-05-11 14:10 | MM ---
Reason for Exam: Additional evaluation requested from abnormal screening. Last screening mammogram was performed less than 1 month ago. Patient History: Menarche at age 13. First Full-Term at age 30. Late child-bearing (after 30). Postmenopausal. Patient has history of breast feeding. Hormonal Contraceptives for 23 years, 6 months, from age 18 until age 41. Maternal grandmother had breast cancer, age 60. Mother had breast cancer, age 30. Risk Values: Hemalatha 5 year model risk: 2.5%. NCI Lifetime model risk: 15.6%. Tissue Density: Right: There are scattered fibroglandular densities. Findings: Analyzed By CAD. No persistent suspicious density or focal asymmetry is evident impression. Mediolateral view appears unremarkable. No suspicious groups of microcalcifications, spiculated or lobular masses, architectural distortion or other secondary signs of malignancy are mammographically apparent. Overall Assessment: Probably benign, BI-RAD 3 Management: Diagnostic Mammogram of the right breast in 6 months. A negative mammogram report should not preclude additional follow up of suspicious palpable abnormalities. Patient should continue monthly self breast exam. A clinical breast exam by your physician is recommended on an annual basis and results should be correlated with mammographic findings. Electronically signed and approved by: Merrick Walker D.O. Radiologis
== END | disposition home or self-care (01) ==
LOC: RADMAMWWP 13:35
PROVIDERS: ATTEND Family Medicine
DX: R92.8 Other abnormal and inconclusive findings on diagnostic imaging of breast (principal); Z78.0 Asymptomatic menopausal state; Z80.3 Family history of malignant neoplasm of breast
CPT/HCPCS: 77061; 77065

== ENCOUNTER 2022-07-15 12:56 | Emergency (ER) | payer OTHER ==
[2022-07-15 13:01] VITALS: BP 121/76; PULSE 82; RESP 20; TEMP 97.9
[2022-07-15] MEDS ORDERED: SODIUM CHLORIDE 0.9% 1,000 ML IV ONE (13:47)
--- NOTE | 2022-07-15 14:09 | ED ---
General Adult HPI - General Chief complaint: Vaginal Bleeding Stated complaint: Female Time Seen by Provider: 07/15/22 13:37 Source: patient, RN notes reviewed Mode of arrival: ambulatory Limitations: no limitations - History of Present Illness Initial comments: 57-year-old female with no significant past medical history presents to the emergency department with a chief complaint of vaginal bleeding. Patient reports she is postmenopausal. Patient reports vaginal bleeding that started approximately 3 days ago. She does report having a heavy workout in which her vaginal bleeding started as a light brown discharge which Has since gotten heavier with bright red blood she is passing clots. Vision dizziness, lightheadedness, chest pain, shortness of breath, nausea, vomiting, dysuria, hematuria. She eyes any hormone replacement therapy. Denies anticoagulant use. - Related Data Home Medications Medication Instructions Recorded Confirmed Cetirizine HCl [Zyrtec] 10 mg PO HS 11/04/14 10/15/21 Sertraline [Zoloft] 100 mg PO HS 11/04/14 10/15/21 Multivitamins, Thera [Multivitamin 1 tab PO HS 01/01/15 10/15/21 (formulary)] Diclofenac Sodium [Voltaren] 75 mg PO BID PRN 11/26/18 10/15/21 Montelukast [Singulair] 10 mg PO HS 11/26/18 10/15/21 Ergocalciferol [Vitamin D2] 50,000 unit PO Q7D 08/05/19 10/15/21 Fluticasone Propionate [Flonase 1 spray EA NOSTRIL DAILY PRN 01/04/21 10/15/21 Allergy Relief] Zinc 50 mg PO DAILY 01/04/21 10/15/21 Ketorolac [Toradol] 10 mg PO Q6HR PRN 10/14/21 10/15/21 metFORMIN HCL 1,000 mg PO HS 10/14/21 10/15/21 Previous Rx's Medication Instructions Recorded Cephalexin [Keflex] 500 mg PO Q8HR #15 cap 10/15/21 Ketorolac [Toradol] 10 mg PO Q6HR PRN #10 tab 10/15/21 Allergies Allergy/AdvReac Type Severity Reaction Status Date / Time sulfamethoxazole Allergy Swelling Verified 07/15/22 13:02 [From Bactrim] of tongue and throat trimethoprim [From Bactrim] Allergy Swelling Verified 07/15/22 13:02 of tongue and throat migraine medication Allergy SWELLING Uncoded 07/15/22 13:02 OF TONGUE AND THROAT Review of Systems ROS Statement: Those systems with pertinent positive or pertinent negative responses have been documented in the HPI. ROS Other: All systems not noted in ROS Statement are negative. Past Medical History Past Medical History: Asthma, GERD/Reflux, Osteoarthritis (OA), Renal Disease Additional Past Medical History / Comment(s): bunnion rt 2nd toe, migraines, renal stones History of Any Multi-Drug Resistant Organisms: None Reported Past Surgical History: Section, Joint Replacement, Orthopedic Surgery Additional Past Surgical History / Comment(s): luis bunionectomy, 2, luis knee replacements,lithotripsy,laser procedure for kidney stones Past Anesthesia/Blood Transfusion Reactions: Motion Sickness, Postoperative Nausea & Vomiting (PONV) Additional Past Anesthesia/Blood Transfusion Reaction / Comment(s): no hx blood transfusion,daughter takes a long time to come out of anesthesia Past Psychological History: Depression Smoking Status: Never smoker Past Alcohol Use History: None Reported Past Drug Use History: None Reported - Past Family History Brother(s) Additional Family Medical History / Comment(s): Patient has 1 brother with asthma and ALLERGIES. Sister(s) Additional Family Medical History / Comment(s): Patient has one sister with bipolar and major depression. Daughter(s) Additional Family Medical History / Comment(s): Patient has one son that has asthma as a child only but also developed MRSA pneumonia. Patient has one daughter with depression, anxiety and bipolar disorder,Lyme disease,[place] Father Family Medical History: Cancer Mother Family Medical History: Cancer, Deep Vein Thrombosis (DVT), Pulmonary Embolus General Exam - General Exam Comments Initial Comments: General: Alert, in no acute distress Head: atraumatic normocephalic. Eyes PERRL, EOMI intact, mucous membranes moist Respiratory: Lungs clear to auscultation bilaterally Cardiovascular: Heart rate regular rate and rhythm Abdominal: Soft without guarding or rebound Extremities: Normal inspection with full range of motion and normal capillary refill Neuroogic: alert and oriented 3, CN II-XII intact, able to ambulate with steady gait Skin: warm dry and intact with normal color ; external exam is without any rashes, lesions, erythema. Vaginal canal with scant blood that is easily cleared. No clots. Cervical os is visualized and is closed. There is no cervical motion tenderness for abnormal adnexal tenderness. Pelvic exam performed with open source developerRacquel RN present. Limitations: no limitations Course Vital Signs 07/15/22 12:58 Temperature 97.9 F Pulse Rate 82 Respiratory 20 Rate Blood Pressure 121/76 O2 Sat by Pulse 99 Oximetry - Reevaluation(s) Reevaluation #1: 07/15/22 14:31 Pelvic exam performed with darrell Clement present as open source developer in the room. Medical Decision Making - Medical Decision Making Was pt. sent in by a medical professional or institution (, [facility], TEXTILE MACHINERY SALES REPRESENTATIVE, urgent care, hospital, or [facility]...) When possible be specific @ -[No] Did you speak to anyone other than the patient for history (EMS, parent, family, police, friend...)? What history was obtained from this source @ -[No] Did you review nursing and triage notes (agree or disagree)? Why? @ -[I reviewed and agree with nursing and triage notes] Were old charts reviewed (outside hosp., previous admission, EMS record, old EKG, old radiological studies, urgent care reports/EKG's, [facility] records)? Report findings @ -[No old charts were reviewed] Differential Diagnosis (chest pain, altered mental status, abdominal pain women, abdominal pain men, vaginal bleeding, weakness, fever, dyspnea, syncope, headache, dizziness, GI bleed, back pain, seizure, CVA, palpatations, mental health, musculoskeletal)? @ -[not applicable] EKG interpreted by me (3pts min.). @ -[As above] X-rays interpreted by me (1pt min.). @ -[None done] CT interpreted by me (1pt min.). @ -[None done] U/S interpreted by me (1pt. min.). @ Like ultrasound reveals mild and unlikely gym thickening with 8 mm thickness. What testing was considered but not performed or refused? (CT, X-rays, U/S, oliverio bs)? Why? @ -[None] What meds were considered but not given or refused? Why? @ -[None] Did you discuss the management of the patient with other professionals (professionals i.e. , VIV[facility], TEXTILE MACHINERY SALES REPRESENTATIVE, lab, RT, psych nurse, social work instructor, ladle liner helper, teacher, reserve officer, caser)? Give summary @ -[No] Was smoking cessation discussed for >3mins.? @ -[No] Was critical care preformed (if so, how long)? @ -[No] Were there social determinants of health that impacted care today? How? (Homelessness, low income, unemployed, alcoholism, drug addiction, transportation, low edu. Level, literacy, decrease access to med. care, shelter, rehab)? @ -[No] Was there de-escalation of care discussed even if they declined (Discuss DNR or withdrawal of care, Hospice)? DNR status @ -[No] What co-morbidities impacted this encounter? (DM, HTN, Smoking, COPD, CAD, Cancer, CVA, ARF, Chemo, Hep., AIDS, mental health diagnosis, sleep apnea, morbid obesity)? @ -[None] Was patient admitted / discharged? Hospital course, mention meds given and route, prescriptions, significant lab abnormalities, going to OR and other pe rtinent info. @ -Discharged. This is a 57-year-old female who presents the emergency department with vaginal bleeding. Patient had a thorough history and physical exam performed in the ED. Physical exam essentially unremarkable. Heart rate regular rate and rhythm, lungs are to auscultation bilaterally, abdomen soft non-tender. Pelvic exam with scant amount of blood that is easily cleared from the vaginal vault. Cervical os is closed.. Patient had lab work and imaging performed which were essentially unremarkable. Return precautions were discussed at length. Patient discharged in stable condition. Case discussed with Dr. Sargent Wendy who agrees with plan of care. Undiagnosed new problem with uncertain prognosis? @ -[No] Drug Therapy requiring intensive monitoring for toxicity (Heparin, Nitro, Insulin, Cardizem)? @ -[No] Were any procedures done? @ -[No] Diagnosis/symptom? @ -Vaginal Bleeding Acute, or Chronic, or Acute on Chronic? @ -Acute Uncomplicated (without systemic symptoms) or Complicated (systemic symptoms)? @ -Uncomplicated Side effects of treatment? @ -[No] Exacerbation, Progression, or Severe Exacerbation? @ -[No] Poses a threat to life or bodily function? How? (Chest pain, USA, MA, pneumonia, PE, COPD, DKA, ARF, appy, cholecystitis, CVA, Diverticulitis, Homicidal, Suicidal, threat to staff... and all critical care pts) @ -Low likelihood - Lab Data Result diagrams: 07/15/22 13:29 07/15/22 13:29 Lab Results 07/15/22 07/15/22 07/15/22 Range/Units 13:29 13:29 13:29 WBC 4.4 (3.8-10.6) k/uL RBC 4.64 (3.80-5.40) m/uL Hgb 13.6 (11.4-16.0) gm/dL Hct 40.7 (34.0-46.0) % MCV 87.6 (80.0-100.0) fL MCH 29.2 (25.0-35.0) pg MCHC 33.4 (31.0-37.0) g/dL RDW 13.4 (11.5-15.5) % Plt Count 296 (150-450) k/uL MPV 7.1 Neutrophils % 69 % Lymphocytes % 22 % Monocytes % 6 % Eosinophils % 1 % Basophils % 0 % Neutrophils # 3.0 (1.3-7.7) k/uL Lymphocytes # 1.0 (1.0-4.8) k/uL Monocytes # 0.3 (0-1.0) k/uL Eosinophils # 0.1 (0-0.7) k/uL Basophils # 0.0 (0-0.2) k/uL Sodium 139 (137-145) mmol/L Potassium 3.7 (3.5-5.1) mmol/L Chloride 103 (98-107) mmol/L Carbon Dioxide 26 (22-30) mmol/L Anion Gap 10 mmol/L BUN 16 (7-17) mg/dL Creatinine 0.63 (0.52-1.04) mg/dL Est GFR (CKD-EPI)AfAm >90 (>60 ml/min/1.73 sqM) Est GFR (CKD-EPI)NonAf >90 (>60 ml/min/1.73 sqM) Glucose 85 (74-99) mg/dL Calcium 9.4 (8.4-10.2) mg/dL Total Bilirubin 0.7 (0.2-1.3) mg/dL AST 24 (14-36) U/L ALT 22 (4-34) U/L Alkaline Phosphatase 97 (38-126) U/L Total Protein 7.2 (6.3-8.2) g/dL Albumin 4.5 (3.5-5.0) g/dL Urine Color Urine Appearance (Clear) Urine pH (5.0-8.0) Ur Specific Reese (1.001-1.035) Urine Protein (Negative) Urine Glucose (UA) (Negative) Urine Ketones (Negative) Urine Blood (Negative) Urine Nitrite (Negative) Urine Bilirubin (Negative) Urine Urobilinogen (<2.0) mg/dL Ur Leukocyte Esterase (Negative) Urine RBC (0-5) /hpf Urine WBC (0-5) /hpf Ur Squamous Epith Cells (0-4) /hpf Urine Bacteria (None) /hpf Blood Type O Positive Blood Type Recheck No Previous Record Bld Type Recheck Status CABO Indicated Antibody Screen NEGATIVE Spec Expiration Date 07/18/2022 - 232807/15/22 Range/Units 14:00 WBC (3.8-10.6) k/uL RBC (3.80-5.40) m/uL Hgb (11.4-16.0) gm/dL Hct (34.0-46.0) % MCV (80.0-100.0) fL MCH (25.0-35.0) pg MCHC (31.0-37.0) g/dL RDW (11.5-15.5) % Plt Count (150-450) k/uL MPV Neutrophils % % Lymphocytes % % Monocytes % % Eosinophils % % Basophils % % Neutrophils # (1.3-7.7) k/uL Lymphocytes # (1.0-4.8) k/uL Monocytes # (0-1.0) k/uL Eosinophils # (0-0.7) k/uL Basophils # (0-0.2) k/uL Sodium (137-145) mmol/L Potassium (3.5-5.1) mmol/L Chloride (98-107) mmol/L Carbon Dioxide (22-30) mmol/L Anion Gap mmol/L BUN (7-17) mg/dL Creatinine (0.52-1.04) mg/dL Est GFR (CKD-EPI)AfAm (>60 ml/min/1.73 sqM) Est GFR (CKD-EPI)NonAf (>60 ml/min/1.73 sqM) Glucose (74-99) mg/dL Calcium (8.4-10.2) mg/dL Total Bilirubin (0.2-1.3) mg/dL AST (14-36) U/L ALT (4-34) U/L Alkaline Phosphatase (38-126) U/L Total Protein (6.3-8.2) g/dL Albumin (3.5-5.0) g/dL Urine Color Light Yellow Urine Appearance Clear (Clear) Urine pH 6.0 (5.0-8.0) Ur Specific Reese 1.002 (1.001-1.035) Urine Protein Trace H (Negative) Urine Glucose (UA) Negative (Negative) Urine Ketones Negative (Negative) Urine Blood Large H (Negative) Urine Nitrite Negative (Negative) Urine Bilirubin Negative (Negative) Urine Urobilinogen <2.0 (<2.0) mg/dL Ur Leukocyte Esterase Negative (Negative) Urine RBC 1 (0-5) /hpf Urine WBC 1 (0-5) /hpf Ur Squamous Epith Cells 1 (0-4) /hpf Urine Bacteria Occasional H (None) /hpf Blood Type Blood Type Recheck Bld Type Recheck Status Antibody Screen Spec Expiration Date Disposition Clinical Impression: Vaginal bleeding Disposition: HOME SELF-CARE Condition: Stable Additional Instructions: These follow-up with her DATA REPORT ANALYST on Monday These return to the nearest emergency department if symptoms worsen or persist Is patient prescribed a controlled substance at d/c from ED?: No Referrals: Raphael Carlin DO [Primary Care Provider] - 1-2 days Time of Disposition: 15:21
[2022-07-15 14:13] LABS: Basophils % (A) 0 %; Eosinophils # (A) 0.1 k/uL (0-0.7); Eosinophils % (A) 1 %; HCT 40.7 % (34.0-46.0); HGB 13.6 gm/dL (11.4-16.0); Lymphocytes % (A) 22 %; MCH 29.2 pg (25.0-35.0); MCHC 33.4 g/dL (31.0-37.0); MCV 87.6 fL (80.0-100.0); Mean Platelet Volume 7.1; Monocytes # (A) 0.3 k/uL (0-1.0); Monocytes % (A) 6 %; Neutrophils % (A) 69 %; Platelet Count 296 k/uL (150-450); RBC 4.64 m/uL (3.80-5.40); RDW 13.4 % (11.5-15.5); WBC 4.4 k/uL (3.8-10.6)
[2022-07-15 14:34] LABS: ALT 22 U/L (4-34); AST 24 U/L (14-36); African American GFR (CKD) >90 (>60 ml/min/1.73 sqM); Albumin 4.5 g/dL (3.5-5.0); Alkaline Phosphatase 97 U/L (38-126); Anion Gap 10 mmol/L; Blood Urea Nitrogen 16 mg/dL (7-17); Calcium 9.4 mg/dL (8.4-10.2); Carbon Dioxide 26 mmol/L (22-30); Chloride 103 mmol/L (98-107); Glucose 85 mg/dL (74-99); Non-African American GFR(CKD) >90 (>60 ml/min/1.73 sqM); Potassium 3.7 mmol/L (3.5-5.1); Sodium 139 mmol/L (137-145); Total Bilirubin 0.7 mg/dL (0.2-1.3); Total Protein 7.2 g/dL (6.3-8.2)
[2022-07-15 14:53] LABS: Appearance,Urine Clear (Clear); Bacteria,Urine Occasional /hpf; Bilirubin,Urine Negative (Negative); Blood,Urine Large (Negative); Color,Urine Light Yellow; Glucose,Urine (UA) Negative (Negative); Ketones,Urine Negative (Negative); Leukocyte Esterase,Urine Negative (Negative); Nitrite,Urine Negative (Negative); Protein,Urine Trace (Negative); RBC,Urine 1 /hpf (0-5); Specific Gravity,Urine 1.002 (1.001-1.035); Squamous Epithelial Cell,Urine 1 /hpf (0-4); Urobilinogen,Urine <2.0 mg/dL (<2.0); WBC,Urine 1 /hpf (0-5)
--- NOTE | 2022-07-15 15:08 | US ---
EXAMINATION TYPE: US pelvis complete transvag DATE OF EXAM: 07/15/2022 COMPARISON: NONE CLINICAL INDICATION: Female, 57 years old with history of post-menopausal vaginal bleeding; 3 days of postmenopausal bleeding, no pain, h/o 2 TECHNIQUE: TA/TV. Transabdominal sonographic images of the pelvis were acquired. Transvaginal sono graphic images Date of LMP: 2 years EXAM MEASUREMENTS: Uterus: 10.1 x 4.7 x 4.3 cm Endometrial Stripe: 0.8 cm Right Ovary: 2.8 x 2.7 x 1.7 cm Left Ovary: 2.2 x 2.6 x 1.8 cm 1. Uterus: Anteverted heterogeneous myometrium 2. Endometrium: slightly thickened 2 years post 3. Right Ovary: wnl 4. Left Ovary: 1.6 x 1.4 x 1.7cm simple cyst 5. Bilateral Adnexa: wnl 6. Posterior cul-de-sac: wnl IMPRESSION: 1. The myometrium is heterogeneous which is a nonspecific finding but endometrium measures 8 mm which is slightly thickened. Correlate for endometrial pathology. 2. 1.7 cm right simple appearing ovarian cyst. Correlation with CA-125 could be obtained.
== END 2022-07-15 15:49 | disposition home or self-care (01) ==
LOC: EC 12:56
DX: N83.201 Unspecified ovarian cyst, right side (principal); J45.909 Unspecified asthma, uncomplicated; M19.90 Unspecified osteoarthritis, unspecified site; F32.A Depression, unspecified; Z79.899 Other long term (current) drug therapy; Z88.2 Allergy status to sulfonamides; Z88.8 Allergy status to other drugs, medicaments and biological substances
CPT/HCPCS: 36415; 76830; 76856; 80053; 81001; 85025; 86850; 86900; 86901; 96360; 99284

== ENCOUNTER → 2022-12-07 | Outpatient (CLI) | payer OTHER ==
--- NOTE | 2022-12-07 08:11 | MM ---
Reason for Exam: Follow-up at short interval from prior study. Last screening mammogram was performed 7 month(s) ago. Patient History: Menarche at age 13. First Full-Term at age 30. Late child-bearing (after 30). Postmenopausal. Patient has history of breast feeding. Hormonal Contraceptives for 23 years, 6 months, from age 18 until age 41. Maternal grandmother had breast cancer, age 60. Mother had breast cancer, age 30. Risk Values: Hemalatha 5 year model risk: 2.6%. NCI Lifetime model risk: 15.3%. Prior Study Comparison: 03/31/2021 Bilateral Screening Mammogram, [facility]. 05/04/2022 Bilateral MG 3D screening mammo w/cad, [facility]. 05/11/2022 Right MG 3D work up w/cad RT, [facility]. Tissue Density: Right: There are scattered fibroglandular densities. Findings: Analyzed By CAD. Pattern appears stable. No persistent irregular nodule focal asymmetry is evident. Benign-appearing calcification present. No suspicious groups of microcalcifications, spiculated or lobular masses, architectural distortion or other secondary signs of malignancy are mammographically apparent. Overall Assessment: Benign, BI-RAD 2 Management: Screening Mammogram of both breasts in 6 months. A negative mammogram report should not preclude additional follow up of suspicious palpable abnormalities. Patient should continue monthly self breast exam. A clinical breast exam by your physician is recommended on an annual basis and results should be correlated with mammographic findings. Electronically signed and approved by: Merrick Walker D.O. Radiologis
== END | disposition home or self-care (01) ==
LOC: RADMAMWWP 07:49
PROVIDERS: ATTEND Family Medicine
DX: R92.321 Mammographic fibroglandular density, right breast (principal); Z78.0 Asymptomatic menopausal state; Z80.3 Family history of malignant neoplasm of breast
CPT/HCPCS: 77061; 77065

== ENCOUNTER → 2023-06-30 | Outpatient (CLI) | payer BC ==
--- NOTE | 2023-07-04 11:28 | MM ---
Reason for Exam: Screening (asymptomatic). Last mammogram was performed 1 year(s) and 2 month(s) ago. Patient History: Menarche at age 13. First Full-Term at age 30. Late child-bearing (after 30). Postmenopausal. Patient has history of breast feeding. Hormonal Contraceptives for 23 years, 6 months, from age 18 until age 41. Maternal grandmother had breast cancer, age 60. Mother had breast cancer, age 30. Risk Values: Hemalatha 5 year model risk: 2.7%. NCI Lifetime model risk: 14.9%. Prior Study Comparison: 05/04/2022 Bilateral MG 3D screening mammo w/cad, [facility]. 05/11/2022 Right MG 3D work up w/cad RT, [facility]. 12/07/2022 Right MG 3D diag mammo w/cad RT, [facility]. Tissue Density: The breasts are heterogeneously dense, which may obscure small masses. Findings: Analyzed By CAD. Right breast: There is no suspicious group of microcalcifications or new suspicious mass. Left breast: There is no suspicious group of microcalcifications or new suspicious mass. Overall Assessment: Negative, BI-RAD 1 Management: Screening Mammogram of both breasts in [address] [facility] will attempt to contact patient to return for supplemental views and ultrasound if indicated. Patient should continue monthly self-breast exams. A clinical breast exam by your physician is recommended on an annual basis. This exam should not preclude additional follow-up of suspicious palpable abnormalities. Note on Hemalatha scores and lifetime risk: 1. A Hemalatha score greater than 3% is considered moderate risk. If this is the case, consider specialist referral to assess eligibility for a risk reducing agent. 2. If overall lifetime risk for the development of breast cancer is 20% or higher, the patient may qualify for future screening with alternating mammogram and breast MRI. Electronically signed and approved by: Blue Garcia DO
== END | disposition home or self-care (01) ==
LOC: RADMAMWWP 10:49
PROVIDERS: ATTEND Family Medicine
DX: Z12.31 Encounter for screening mammogram for malignant neoplasm of breast (principal); Z78.0 Asymptomatic menopausal state; Z80.3 Family history of malignant neoplasm of breast
CPT/HCPCS: 77063; 77067

== ENCOUNTER 2023-08-14 07:15 | Emergency (ER) | payer BC ==
[2023-08-14 07:21] VITALS: TEMP 97.9
--- NOTE | 2023-08-14 07:44 | ED ---
Fall HPI - General Chief Complaint: Fall Stated Complaint: Fall, Hip Pain, Arm Pain Time Seen by Provider: 08/14/23 07:22 Source: patient, RN notes reviewed Mode of arrival: ambulatory Limitations: no limitations - History of Present Illness Initial Comments: 58-year-old female presents emergency department with chief complaint of a fall. Patient states that she was on cinderblock wall grabbing some hanging plants when she fell striking the wall she states this happened yesterday she did bump her head but has no headache or neck pain no visual disturbance. Denies any blood thinners. She has an abrasion to her right arm her tetanus is up-to-date per patient. Patient does complain of right elbow pain, left hand pain, right foot pain patient states she had multiple surgeries on her right foot - Related Data Home Medications Medication Instructions Recorded Confirmed Cetirizine HCl [Zyrtec] 10 mg PO HS 11/04/14 10/15/21 Sertraline [Zoloft] 100 mg PO HS 11/04/14 10/15/21 Multivitamins, Thera [Multivitamin 1 tab PO HS 01/01/15 10/15/21 (formulary)] Diclofenac Sodium [Voltaren] 75 mg PO BID PRN 11/26/18 10/15/21 Montelukast [Singulair] 10 mg PO HS 11/26/18 10/15/21 Ergocalciferol [Vitamin D2] 50,000 unit PO Q7D 08/05/19 10/15/21 Fluticasone Propionate [Flonase 1 spray EA NOSTRIL DAILY PRN 01/04/21 10/15/21 Allergy Relief] Zinc 50 mg PO DAILY 01/04/21 10/15/21 Ketorolac [Toradol] 10 mg PO Q6HR PRN 10/14/21 10/15/21 metFORMIN HCL 1,000 mg PO HS 10/14/21 10/15/21 Previous Rx's Medication Instructions Recorded Cephalexin [Keflex] 500 mg PO Q8HR #15 cap 10/15/21 Ketorolac [Toradol] 10 mg PO Q6HR PRN #10 tab 10/15/21 Allergies Allergy/AdvReac Type Severity Reaction Status Date / Time sulfamethoxazole Allergy Swelling Verified 08/14/23 07:21 [From Bactrim] of tongue and throat trimethoprim [From Bactrim] Allergy Swelling Verified 08/14/23 07:21 of tongue and throat migraine medication Allergy SWELLING Uncoded 08/14/23 07:21 OF TONGUE AND THROAT Review of Systems ROS Statement: Those systems with pertinent positive or pertinent negative responses have been documented in the HPI. ROS Other: All systems not noted in ROS Statement are negative. Past Medical History Past Medical History: Asthma, GERD/Reflux, Osteoarthritis (OA), Renal Disease Additional Past Medical History / Comment(s): bunnion rt 2nd toe, migraines, renal stones, History of Any Multi-Drug Resistant Organisms: None Reported Past Surgical History: Section, Joint Replacement, Orthopedic Surgery Additional Past Surgical History / Comment(s): luis bunionectomy, 2, luis knee replacements,lithotripsy,laser procedure for kidney stones Past Anesthesia/Blood Transfusion Reactions: Motion Sickness, Postoperative Nausea & Vomiting (PONV) Additional Past Anesthesia/Blood Transfusion Reaction / Comment(s): no hx blood transfusion,daughter takes a long time to come out of anesthesia Past Psychological History: Depression Smoking Status: Never smoker Past Alcohol Use History: None Reported Past Drug Use History: None Reported - Past Family History Brother(s) Additional Family Medical History / Comment(s): Patient has 1 brother with asthma and ALLERGIES. Sister(s) Additional Family Medical History / Comment(s): Patient has one sister with bipolar and major depression. Daughter(s) Additional Family Medical History / Comment(s): Patient has one son that has asthma as a child only but also developed MRSA pneumonia. Patient has one daughter with depression, anxiety and bipolar disorder,Lyme disease,[place] Father Family Medical History: Cancer Mother Family Medical History: Cancer, Deep Vein Thrombosis (DVT), Pulmonary Embolus General Exam Limitations: no limitations General appearance: alert, in no apparent distress Head exam: Present: atraumatic, normocephalic, normal inspection Eye exam: Present: normal appearance, PERRL, EOMI. Absent: scleral icterus, conjunctival injection, periorbital swelling ENT exam: Present: normal exam, normal oropharynx, mucous membranes moist Neck exam: Present: normal inspection, full ROM. Absent: tenderness, meningismus, lymphadenopathy Respiratory exam: Present: normal lung sounds bilaterally. Absent: respiratory distress, wheezes, rales, rhonchi, stridor Cardiovascular Exam: Present: regular rate, normal rhythm, normal heart sounds. Absent: systolic murmur, diastolic murmur, rubs, gallop, clicks Extremities exam: Present: other (Large abrasion right elbow with pain with range of motion tenderness with palpation, neurovascular intact left hand fifth metacarpal region there is tenderness to palpation ecchymosis noted in right foot tenderness to the lateral portion neurovascular intact) Back exam: Present: full ROM. Absent: tenderness Neurological exam: Present: reflexes normal. Absent: motor sensory deficit Psychiatric exam: Present: normal affect, normal mood Course Vital Signs 08/14/23 07:18 Temperature 97.9 F Pulse Rate 72 Respiratory 18 Rate Blood Pressure 118/69 O2 Sat by Pulse 96 Oximetry Medical Decision Making - Medical Decision Making Was pt. sent in by a medical professional or institution (, PA, [facility] [employer], urgent care, hospital, or [facility]...) When possible be specific @ -No Did you speak to anyone other than the patient for history (EMS, parent, family, police, friend...)? What history was obtained from this source @ -No Did you review nursing and triage notes (agree or disagree)? Why? @ -I reviewed and agree with nursing and triage notes Were old charts reviewed (outside hosp., previous admission, EMS record, old EKG, old radiological studies, urgent care reports/EKG's, [facility] records)? Report findings @ -No old charts were reviewed Differential Diagnosis (chest pain, altered mental status, abdominal pain women, abdominal pain men, vaginal bleeding, weakness, fever, dyspnea, syncope, headache, dizziness, GI bleed, back pain, seizure, CVA, palpatations, mental health, musculoskeletal)? @ -Fall, hand contusion, hand fracture, abrasion, foot fracture, foot contusion EKG interpreted by me (3pts min.). @ -None X-rays interpreted by me (1pt min.). @ -None done CT interpreted by me (1pt min.). @ -None done U/S interpreted by me (1pt. min.). @ -None done What testing was considered but not performed or refused? (CT, X-rays, U/S, labs)? Why? @ -None What meds were considered but not given or refused? Why? @ -None Did you discuss the management of the patient with other professionals (professionals i.e. , PA, [facility] [employer], lab, RT, psych nurse, outreach and education social worker, property management assistant, teacher, house officer, patient case coordinator)? Give summary @ -No Was smoking cessation discussed for >3mins.? @ -No Was critical care preformed (if so, how long)? @ -No Were there social determinants of health that impacted care today? How? (Homelessness, low income, unemployed, alcoholism, drug addiction, transpor tation, low edu. Level, literacy, decrease access to med. care, halfway, rehab)? @ -No Was there de-escalation of care discussed even if they declined (Discuss DNR or withdrawal of care, Hospice)? DNR status @ -No What co-morbidities impacted this encounter? (DM, HTN, Smoking, COPD, CAD, Cancer, CVA, ARF, Chemo, Hep., AIDS, mental health diagnosis, sleep apnea, morbid obesity)? @ -None Was patient admitted / discharged? Hospital course, mention meds given and route, prescriptions, significant lab abnormalities, going to OR and other pertinent info. @ -Discharge patient presented after a fall x-rays were reviewed no acute fractures. Patient is discharged in stable condition Undiagnosed new problem with uncertain prognosis? @ -No Drug Therapy requiring intensive monitoring for toxicity (Heparin, Nitro, Insulin, Cardizem)? @ -No Were any procedures done? @ -No Diagnosis/symptom? @ -Fall, arm abrasion, hand contusion, foot contusion Acute, or Chronic, or Acute on Chronic? @ -Acute Uncomplicated (without systemic symptoms) or Complicated (systemic symptoms)? @ -uncomplicated Side effects of treatment? @ -No Exacerbation, Progression, or Severe Exacerbation? @ -No Poses a threat to life or bodily function? How? (Chest pain, [place], [place], pneumonia, PE, COPD, DKA, ARF, appy, cholecystitis, CVA, Diverticulitis, Homicidal, Suicidal, threat to staff... and all critical care pts) @ -No Disposition Clinical Impression: Fall, Contusion of foot, Hand contusion, Arm abrasion Disposition: HOME SELF-CARE Condition: Stable Instructions (If sedation given, give patient instructions): Contusion in Adults (ED) Additional Instructions: Please return to the Emergency Department if symptoms worsen or any other concerns. Is patient prescribed a controlled substance at d/c from ED?: No Referrals: Raphael Carlin DO [Primary Care Provider] - 1-2 days Time of Disposition: 08:33
--- NOTE | 2023-08-14 08:07 | XR ---
EXAMINATION TYPE: XR elbow complete RT DATE OF EXAM: 08/14/2023 COMPARISON: NONE HISTORY: Pain FINDINGS: Three views of the elbow demonstrate no pathologic joint effusion. The osseous structures are intact . There is no acute fracture or dislocation. There is spurring involving the head of the radius. Sm all well ossified density adjacent to the medial ulna appears chronic. IMPRESSION: 1. No acute fracture or dislocation. If symptoms persist follow-up study in 7 to 10 days could be ob tained.
--- NOTE | 2023-08-14 08:09 | XR ---
EXAMINATION TYPE: XR hand complete LT DATE OF EXAM: 08/14/2023 COMPARISON: NONE HISTORY: Pain TECHNIQUE: Three views are submitted. FINDINGS: The osseous structures are intact. Arthropathy of the first through third MCP joints with spurring. M ild first carpal metacarpal joint arthropathy. Well-corticated ossific density adjacent to the ulnar styloid appears chronic. There is widening of the scapholunate joint. IMPRESSION: 1. No definite acute fracture or dislocation if symptoms persist, follow-up study in 7 to 10 days wo uld be suggested. 2. Widening of the scapholunate joint could be associated with ligamentous injury recommend follow-up MRI.
--- NOTE | 2023-08-14 08:12 | XR ---
EXAMINATION TYPE: XR foot complete RT DATE OF EXAM: 08/14/2023 COMPARISON: NONE HISTORY: Pain TECHNIQUE: Three views are submitted. FINDINGS: The osseous structures are intact. There is no acute fracture or dislocation. Hallux valgus deform ity of first digit. There is an exostosis of the head of the fifth metatarsal. Postsurgical change in volving the first and second digit. Severe arthropathy of the first MTP joint. There is fusion of the first tarsal metatarsal joint. Hallux valgus deformity first digit. There is be fusion of the PIP julienne int of the second digit. Chronic appearing deformity of the base proximal phalanx third digit. Hammer toe deformities incidentally noted. Calcaneal spurs noted. IMPRESSION: 1. No acute fracture or dislocation. If symptoms persist, follow-up exam in 7 to 10 days could be ob tained.
[2023-08-14 08:53] VITALS: BP 122/70; PULSE 78; RESP 16
== END 2023-08-14 08:53 | disposition home or self-care (01) ==
LOC: EC 07:15
DX: S60.222A Contusion of left hand, initial encounter (principal); S90.31XA Contusion of right foot, initial encounter; S40.811A Abrasion of right upper arm, initial encounter; Z88.2 Allergy status to sulfonamides; Z88.8 Allergy status to other drugs, medicaments and biological substances; Z88.1 Allergy status to other antibiotic agents; W01.10XA Fall on same level from slipping, tripping and stumbling with subsequent striking against unspecified object, initial encounter
CPT/HCPCS: 99283

== ENCOUNTER → 2023-09-08 | Day surgery (SDC) | payer BC ==
[2023-09-06 15:49] VITALS: BMI 33.5
[~2023-09-08] MED LIST changes: -.MORPHINE SULFATE (INJ) 10 MG/ML SYRINGE ONE; -DEXAMETHASONE SOD PHOSPHATE 4 MG/ML 1 ML VIAL IV ONE; -HYDROmorphone 0.5 MG/0.5 ML SYRINGE IVP ONE; -HYDROmorphone 0.5 MG/0.5 ML SYRINGE IVP PRN; -KETOROLAC 15 MG/ML 1 ML VIAL IVP ONE; -LACTATED RINGERS 1,000 ML IV SCH; +LIDOCAINE 1% (10MG/ML) FOR IV START INTRADERMA PRN; -LIDOCAINE 2% INJ 20 MG/ML (2 ML VIAL) ONE; -MIDAZOLAM 2 MG/2 ML VIAL IV PRN; -MIDAZOLAM 2 MG/2 ML VIAL ONE; -ONDANSETRON 4 MG/2 ML VIAL IVP ONE; -SCOPOLAMINE 1 MG/72 HR PATCH TRANSDERM ONE
[2023-09-08 13:59] VITALS: TEMP 97.6
[2023-09-08] MEDS: IV FLUID CONTINUATION 1,000 ML IV ONE (13:59)
[2023-09-08] MEDS: LACTATED RINGERS 1,000 ML IV SCH (14:00)
--- NOTE | 2023-09-08 15:01 | P.PCN ---
Date of Procedure: 09/08/23 Procedure(s) Performed: BRIEF HISTORY: Patient is a 58-year-old pleasant white female scheduled for an elective colonoscopy as a part of screening for colon cancer. PROCEDURE PERFORMED: Colonoscopy with snare polypectomy PREOPERATIVE DIAGNOSIS: Screening for colon cancer. IV sedation per Anesthesia. PROCEDURE: After informed consent was obtained, the patient, was brought into the endoscopy unit. IV sedation was administered by Anesthesia under continuous monitoring. Digital rectal examination was normal. Initially the Olympus CF-160 flexible video colonoscope was then inserted in the rectum, gradually advanced into the cecum without any difficulty. Careful examination was performed as the scope was gradually being withdrawn. Ileocecal valve and the appendiceal orifice were visualized and appeared normal. Prep was excellent. Mucosa of the cecum, ascending colon, appeared normal. The transverse colon there was a 7 mm sessile polyp removed by cold snare polypectomy. Rest of the transverse colon, descending colon, sigmoid colon, and rectum appeared normal. Retroflexion was performed in the rectum and no lesions were seen. The patient tolerated the procedure well. IMPRESSION: 7 mm transverse colon polyp status post cold snare polypectomy Rest of the colon appeared normal RECOMMENDATIONS: Findings of this examination were discussed with the patient as well as her family. She was advised to follow-up with the biopsy results. If the biopsy reveals adenoma, recommended repeat colonoscopy in 5 years..
[2023-09-08 15:06] VITALS: RESP 16
[2023-09-08 15:23] VITALS: BP 112/69; PULSE 70
== END ==
LOC: ORWHC2ENDO 11:56
PROVIDERS: ATTEND Internal Medicine Gastroenterology
DX: Z12.11 Encounter for screening for malignant neoplasm of colon (principal); D12.3 Benign neoplasm of transverse colon; H40.9 Unspecified glaucoma; F32.A Depression, unspecified; Z79.899 Other long term (current) drug therapy; Z88.1 Allergy status to other antibiotic agents; Z88.8 Allergy status to other drugs, medicaments and biological substances; Z98.890 Other specified postprocedural states
CPT/HCPCS: 81025; 88305; 45385; J2704

== ENCOUNTER → 2024-06-18 | Outpatient (CLI) | payer BC ==
[2024-06-18 19:48] LABS: BUN/Creat Ratio 23.12 Ratio (12.00-20.00); Blood Urea Nitrogen 18.5 mg/dL (9.0-27.0); Calcium 9.6 mg/dL (8.7-10.3); Carbon Dioxide 25.8 mmol/L (21.6-31.8); Chloride 104 mmol/L (96-109); Glucose 118 mg/dL (70-110); Potassium 4.2 mmol/L (3.5-5.5); Sodium 138 mmol/L (135-145)
[2024-06-18 21:02] LABS: Basophils # (A) 0.05 X 10*3/uL (0.00-0.10); Basophils % (A) 0.9 %; Eosinophils # (A) 0.06 X 10*3/uL (0.04-0.35); HCT 41.1 % (37.2-46.3); HGB 13.3 g/dL (12.0-15.0); Lymphocytes # (A) 1.52 X 10*3/uL (0.90-5.00); Lymphocytes % (A) 26.2 %; MCH 29.4 pg (27.0-32.0); MCHC 32.4 g/dL (32.0-37.0); MCV 90.9 FL (80.0-97.0); Mean Platelet Volume 9.7 FL (9.5-12.2); Monocytes # (A) 0.34 X 10*3/uL (0.20-1.00); Monocytes % (A) 5.9 %; NRBC Per 100 WBC 0 X 10*3/uL (0.00-0.01); Neutrophils # (A) 3.81 X 10*3/uL (1.80-7.70); Neutrophils % (A) 65.5 %; Platelet Count 343 X 10*3/uL (140-440); RBC 4.52 X 10*6/uL (4.10-5.20); RDW 13.1 % (11.5-14.5); WBC 5.81 X 10*3/uL (4.50-10.00)
== END | disposition home or self-care (01) ==
LOC: LABPAT 16:01
PROVIDERS: ATTEND Urology
DX: Z01.812 Encounter for preprocedural laboratory examination (principal); N20.0 Calculus of kidney
CPT/HCPCS: 80048; 85025

== ENCOUNTER 2024-06-20 10:25 | Day surgery (SDC) | payer BC ==
[2024-06-19 09:47] VITALS: BMI 34.3
[~2024-06-20 10:25] MED LIST changes: -PROPOFOL 10 MG/ML 20 ML VIAL IV ONE; +droPERidol 2.5 MG/ML VIAL IVP ONE
--- NOTE | 2024-06-20 10:55 | XR ---
EXAMINATION TYPE: XR KUB DATE OF EXAM: 06/20/2024 10:37 AM CLINICAL INDICATION: Female, 59 years old with history of RIGHT KIDNEY STONE, pain TECHNIQUE: 2 supine view of the abdomen. COMPARISON: Abdominal x-ray May 04, 2022. FINDINGS: There is a 3 mm right renal calculus inferior L2 level. No definitive left-sided nephrolith iasis. Tiny bilateral pelvic phleboliths are redemonstrated. Overall nonobstructive bowel gas pattern. Degenerative change L4-L5 level is again seen. Lung bases a re clear. IMPRESSION: As above. [facility], , 06/20/2024 10:53 AM
[2024-06-20] MEDS: IV FLUID CONTINUATION 1,000 ML IV ONE ×2 (11:07→12:34)
[2024-06-20] MEDS: LACTATED RINGERS 1,000 ML IV SCH (11:20)
--- NOTE | 2024-06-20 11:25 | P.HPIHPCON ---
History of Present Illness H&P Date: 06/20/24 Chief Complaint: Right renal stone This is a 59-year-old female with history of right-sided renal stone, and KUB stones measuring approximately 5 mm. She is having symptomatic right flank pain. She does have a history of recurrent kidney stones. Discussed given the flank pain the option of right-sided ureteroscopy versus ESWL. She agreed to proceed with right-sided ureteroscopy with holmium laser. She is aware of the risk which include but not limited to bleeding, infection, injury to the ureter. Discussed potential persistent pain even with stone removal Consent for Procedure: I have explained the operation/procedure to the patient, including the risks, benefits, side effects, alternative therapies (including not receiving the proposed treatment or service), the likelihood of the patient achieving his/her goals, and potential recuperation problems for the procedure/sedation/analgesia, as well as any blood products, if indicated. I also explained to the patient the risks, benefits and side effects of the alternatives, as well as the risks related to not receiving the proposed procedure, care, treatment, or services. Past Medical History Past Medical History: Asthma, Eye Disorder, GERD/Reflux, Osteoarthritis (OA) Additional Past Medical History / Comment(s): migraines, renal stones History of Any Multi-Drug Resistant Organisms: None Reported Past Surgical History: Section, Joint Replacement, Orthopedic Surgery Additional Past Surgical History / Comment(s): luis bunionectomy, 2, luis knee replacements, lithotripsy, newer procedure for removal of bunions, Hammer toe repair rt foot 2nd toe, "Tummy tuck and lipo.", colonoscopy w/polyps (first colonoscopy)-total of 3 colonoscopies Past Anesthesia/Blood Transfusion Reactions: Motion Sickness, Postoperative Nausea & Vomiting (PONV) Additional Past Anesthesia/Blood Transfusion Reaction / Comment(s): no hx blood transfusion,daughter takes a long time to come out of anesthesia. Past Psychological History: Depression Smoking Status: Never smoker Past Alcohol Use History: Occasional Additional Past Alcohol Use History / Comment(s): . Past Drug Use History: None Reported - Past Family History Brother(s) Additional Family Medical History / Comment(s): Patient has 1 brother with asthma and ALLERGIES. Sister(s) Additional Family Medical History / Comment(s): Patient has one sister with bipolar and major depression. Daughter(s) Additional Family Medical History / Comment(s): Patient has one son that has asthma as a child only but also developed MRSA pneumonia. Patient has one daughter with depression, anxiety and bipolar disorder,Lyme disease,[place] Father Family Medical History: Cancer Additional Family Medical History / Comment(s): Chronic lymphocytic leukemia. Mother Family Medical History: Cancer, CVA/TIA, Deep Vein Thrombosis (DVT), Pulmonary Embolus Additional Family Medical History / Comment(s): Lymphoma non hodgkins and esophageal, "heart problems" Medications and Allergies Home Medications Medication Instructions Recorded Confirmed Type Cetirizine HCl [Zyrtec] 10 mg PO HS 11/04/14 06/20/24 History Sertraline [Zoloft] 100 mg PO HS 11/04/14 06/20/24 History Multivitamins, Thera [Multivitamin 1 tab PO HS 01/01/15 06/20/24 History (formulary)] Diclofenac Sodium [Voltaren] 75 mg PO BID PRN 11/26/18 06/20/24 History Montelukast [Singulair] 10 mg PO HS 11/26/18 06/20/24 History Ergocalciferol [Vitamin D2] 50,000 unit PO Q7D 08/05/19 06/20/24 History Latanoprost [Latanoprost 0.005%] 1 drop BOTH EYES HS 09/06/23 06/20/24 History Progesterone, Micronized 100 mg PO HS 09/06/23 06/20/24 History [Progesterone] estradioL [Estrace] 1 mg PO HS 09/06/23 06/20/24 History Fluticasone Nasal [place] [Flonase 1 spray EA NOSTRIL HS PRN 06/19/24 06/20/24 History Nasal [place]] Nf-Magnesium 50 mg PO HS 06/19/24 06/20/24 History Zinc Gluconate [Zinc] 50 mg PO HS 06/19/24 06/20/24 History Allergies Allergy/AdvReac Type Severity Reaction Status Date / Time sulfamethoxazole Allergy Swelling Verified 06/20/24 11:00 [From Bactrim] of tongue and throat trimethoprim [From Bactrim] Allergy Swelling Verified 06/20/24 11:00 of tongue and throat migraine medication Allergy SWELLING Uncoded 06/20/24 11:00 OF TONGUE AND THROAT Surgical - Exam Vital Signs Temp Pulse Resp BP Pulse Ox 97.3 F L 62 18 155/74 100 06/20/24 10:59 06/20/24 10:59 06/20/24 10:59 06/20/24 10:59 06/20/24 10:59 - General no distress, moderate pain - Eyes normal ocular movement, no pale - ENT normal nares, normal mucosa - Respiratory normal expansion, normal respiratory effort - Abdomen Abdomen: soft, non tender - Psychiatric oriented to time, oriented to person, oriented to place Assessment and Plan Assessment: OR for right-sided ureteroscopy, holmium laser lithotripsy, stone basketing and stent insertion
[2024-06-20] MEDS: DEXAMETHASONE SOD PHOSPHATE 4 MG/ML 1 ML VIAL IV ONE (11:26)
[2024-06-20] MEDS: ONDANSETRON 4 MG/2 ML VIAL IVP ONE (11:26)
[2024-06-20] MEDS ORDERED: SUCCINYLCHOLINE CHLORIDE 200 MG/10 ML VIAL IV ONE (12:33)
[2024-06-20] MEDS ORDERED: KETOROLAC 15 MG/ML 1 ML VIAL ONE (12:33)
[2024-06-20] MEDS ORDERED: NEOSTIGMINE 1 MG/ML 10 ML VIAL ONE (12:33)
[2024-06-20] MEDS ORDERED: fentaNYL (PF) 50 MCG/ML 2 ML AMP ONE (12:33)
[2024-06-20] MEDS ORDERED: ROCURONIUM 10 MG/ML (5 ML VIAL) IV ONE (12:33)
[2024-06-20] MEDS ORDERED: LIDOCAINE 1% INJ 10MG/ML (20 ML MDV) ONE (12:33)
[2024-06-20] MEDS ORDERED: MIDAZOLAM 2 MG/2 ML VIAL ONE (12:33)
[2024-06-20] MEDS ORDERED: GLYCOPYRROLATE 0.2 MG/ML 2 ML VIAL ONE (12:33)
[2024-06-20] MEDS ORDERED: PROPOFOL 10 MG/ML 20 ML VIAL IV ONE (12:33)
[2024-06-20] MEDS: ceFAZolin 2 GM in DEXTROSE 5% IN WATER 50 ML IVPB PRN (12:35)
[2024-06-20 13:26] VITALS: TEMP 97.5
--- NOTE | 2024-06-20 13:32 | FL ---
EXAMINATION TYPE: FL guidance operating room DATE OF EXAM: 06/20/2024 CLINICAL INDICATION: Female, 59 years old with history of CYSTOSCOPY LITHOTRIPSY, kidney stone. TECHNIQUE: Fluoroscopy. COMPARISON: Abdominal x-ray earlier today. FINDINGS: Fluoroscopic guidance was provided during cystoscopy with lithotripsy procedure performed by Dr. Capellan. A total of 6 seconds of fluoroscopic time was utilized during the procedure and 3 spo t images was acquired. Images acquired show advancement of guidewire for suspected stent placement. TOTAL DAP = [id number] mGy x m2. IMPRESSION: As Above. [facility], , 06/20/2024 1:30 PM
[2024-06-20] MEDS: HYDROmorphone 0.5 MG/0.5 ML SYRINGE IVP PRN (13:39)
[2024-06-20 14:45] VITALS: RESP 16
[2024-06-20 15:04] VITALS: BP 115/65; PULSE 68
--- NOTE | 2024-06-20 22:11 | P.OP ---
Date of Procedure: 06/20/24 Preoperative Diagnosis: Renal stone Postoperative Diagnosis: Same Procedure(s) Performed: Cystoscopy, right ureteroscopy, holmium laser lithotripsy Implants: none Anesthesia: GETA Estimated Blood Loss (ml): 1 Pathology: none sent Condition: stable Disposition: PACU Indications for Procedure: This is a 59-year-old female with history of right-sided renal stone, and KUB stones measuring approximately 5 mm. She is having symptomatic right flank pain. She does have a history of recurrent kidney stones. Discussed given the flank pain the option of right-sided ureteroscopy versus ESWL. She agreed to proceed with right-sided ureteroscopy with holmium laser. She is aware of the risk which include but not limited to bleeding, infection, injury to the ureter. Discussed potential persistent pain even with stone removal Operative Findings: Right sided lower pole stone Description of Procedure: Patient was brought to the operating room, general anesthesia was induced. She was prepped and draped in sterile fashion placed in dorsolithotomy position. Cystoscopy through the 21 Somali sheath was inserted per urethra, cystoscopy was performed which showed no abnormality within the bladder. The right ureteral orifice was identified and intubated with a sensor wire. With the wire was advanced under fluoroscopy into the kidney. Next under fluoroscopy an 1113 Somali access sheath was passed over the wire into the proximal ureter. Next a flexible ureteroscope was inserted through the access sheath, renoscopy was performed which showed a small stone in the lower pole. Using the holmium laser the stone was dusted. Repeat renoscopy showed no sizable fragments or injury to the kidney, there was no additional stone seen within the kidney. At this time pullback ureteroscopy was performed showed no injury to the ureter or any ureteral stone. of note the ureter was dilated, and consistent with recent passed ureteral stone. There was no ureteral edema thus a stent was not placed. The bladder was emptied at the end of the case. Patient tolerated the procedure well and taken to recovery in stable condition
== END 2024-06-20 15:25 | disposition home or self-care (01) ==
LOC: OR 10:25
PROVIDERS: ATTEND Urology
DX: N20.0 Calculus of kidney (principal); E78.5 Hyperlipidemia, unspecified; J45.909 Unspecified asthma, uncomplicated; K21.9 Gastro-esophageal reflux disease without esophagitis; F32.A Depression, unspecified; Z91.89 Other specified personal risk factors, not elsewhere classified; Z79.890 Hormone replacement therapy; Z79.899 Other long term (current) drug therapy; Z87.442 Personal history of urinary calculi; Z88.2 Allergy status to sulfonamides; Z88.1 Allergy status to other antibiotic agents
CPT/HCPCS: 52353; 74018; C1769; J2250; J0330; J1100; J2710; J0690; J2405; J2003; J3010; J1885; J2704; J1171; J1596

== ENCOUNTER → 2024-07-01 | Outpatient (CLI) | payer BC ==
--- NOTE | 2024-07-01 10:31 | MM ---
Reason for Exam: Screening (asymptomatic). Last screening mammogram was performed 12 month(s) ago. Patient History: Menarche at age 13. First Full-Term at age 30. Late child-bearing (after 30). Postmenopausal. Patient has history of breast feeding. Hormonal Contraceptives for 23 years, 6 months, from age 18 until age 41. Maternal grandmother had breast cancer, age 60. Mother had breast cancer, age 35. Risk Values: Hemalatha 5 year model risk: 2.8%. NCI Lifetime model risk: 14.6%. Prior Study Comparison: 05/11/2022 Right MG 3D work up w/cad RT, [facility]. 12/07/2022 Right MG 3D diag mammo w/cad RT, [facility]. 06/30/2023 Bilateral MG 3D screening mammo w/cad, [facility]. Tissue Density: The breasts are heterogeneously dense, which may obscure small masses. Findings: Analyzed By CAD. Right breast: There is no suspicious group of microcalcifications or new suspicious mass. Benign-appearing calcifications right breast. Left breast: There is no suspicious group of microcalcifications or new suspicious mass. Benign-appearing calcifications left breast. Overall Assessment: Benign, BI-RAD 2 Management: Screening Mammogram of both breasts in [address] [facility] will attempt to contact patient to return for supplemental views and ultrasound if indicated. Patient should continue monthly self-breast exams. A clinical breast exam by your physician is recommended on an annual basis. This exam should not preclude additional follow-up of suspicious palpable abnormalities. Note on Hemalatha scores and lifetime risk: 1. A Hemalatha score greater than 3% is considered moderate risk. If this is the case, consider specialist referral to assess eligibility for a risk reducing agent. 2. If overall lifetime risk for the development of breast cancer is 20% or higher, the patient may qualify for future screening with alternating mammogram and breast MRI. [facility], , 07/01/2024 10:27 AM. Electronically signed and approved by: Blue Garcia DO
== END | disposition home or self-care (01) ==
LOC: RADMAMWWP 09:14
PROVIDERS: ATTEND Obstetrics & Gynecology
DX: Z12.31 Encounter for screening mammogram for malignant neoplasm of breast (principal); R92.1 Mammographic calcification found on diagnostic imaging of breast; R92.333 Mammographic heterogeneous density, bilateral breasts; Z78.0 Asymptomatic menopausal state; Z80.3 Family history of malignant neoplasm of breast; Z92.0 Personal history of contraception
CPT/HCPCS: 77063; 77067